=== PATIENT | female | born 1940 | race Caucasian/White ===

== ENCOUNTER 2016-09-06 13:33 | Inpatient (IN) | payer MEDICARE, BC ==
[~2016-09-06] VITALS: Ht 160 cm; Wt 79.8 kg
[~2016-09-06 13:33] MED LIST: ATOR40TA59 PO; CLON0.1T PO; CYCL10TA2 PO; DILT300C43 PO; FURO20TA3 PO; FURO40TA4 PO; GABA-586 PO; HYDR-2672 PO; LISI2.5T PO; LISI40TA PO; METF500T4 PO; METO100T11 PO; METO50TA10 PO; OMEP20TA PO; PHEN32.42 PO
[2016-09-06 14:38] VITALS: BP 108/56
[2016-09-06] MEDS ORDERED: 0.9 % SODIUM CHLORIDE 10 ML DISP.SYRIN. IV PRN (14:45)
--- NOTE | 2016-09-06 15:16 | RAD ---
Portable chest, 09/06/2016: History: Shortness of breath Comparison is made to a study from 09/12/2015. The heart is mildly enlarged. There is calcific plaquing of the aorta. The pulmonary vascularity is normal. No pulmonary infiltrates are seen. There is no evidence of pleural fluid. IMPRESSION: 1. Mild cardiomegaly and aortic atherosclerosis. 2. No acute cardiopulmonary abnormality is detected.
[2016-09-06 15:17] LABS: BASO % 1 % (0-3); EOS % 5 % (0-3); HEMOGLOBIN 13.1 g/dL (12.0-15.5); LYMPH # 0.4 x10^3/uL (1.0-4.8); LYMPH % 15 % (24-48); MEAN CORPUSCULAR HEMOGLOBIN 32 pg (25-35); MEAN CORPUSCULAR HGB CONC 33 g/dL (31-37); MEAN CORPUSCULAR VOLUME 99 fL (79-100); MONO % 7 % (0-9); NEUT % 73 % (31-73); PLATELET COUNT 62 x10^3/uL (140-400); RED BLOOD COUNT 4.06 x10^6/uL (3.50-5.40); RED CELL DISTRIBUTION WIDTH 13.7 % (11.5-14.5); WHITE BLOOD COUNT 2.7 x10^3/uL (4.0-11.0)
[2016-09-06] MEDS ORDERED: DILTIAZEM 125 MG in IV DEXTROSE 5% 100 ML IV PRN (15:30)
[2016-09-06] MEDS ORDERED: DILTIAZEM IV PUSH 25 MG/5 ML VIAL. IVP ONE (15:30)
[2016-09-06 15:34] LABS: BILIRUBIN,URINE NEGATIVE (NEG); GLUCOSE,URINE NEGATIVE (NEG); NITRITE,URINE NEGATIVE (NEG); PROTEIN,URINE NEGATIVE (NEG-TRACE); UROBILINOGEN,URINE 0.2 mg/dL (0.2 mg/dL)
--- NOTE | 2016-09-06 15:34 | EKG ---
[facility] [address] [place] [address] Test Date: 2016-09-06 Test Time: 15:30:08 Pat Name: KRYSTLE HOWELL Department: Room: 207 Gender: F Ring Maker: : [id number] Requested By: SILVERIO ASKEW Order Number: [id number] Reading MD: Measurements Intervals [place] Rate: 103 P: DC: QRS: 12 QRSD: 92 T: 14 QT: 340 QTc: 447 Interpretive Statements IRREGULAR RHYTHM, NO P-WAVE FOUND QRS(T) CONTOUR ABNORMALITY CONSIDER ANTEROSEPTAL MYOCARDIAL DAMAGE CONSISTENT WITH INFERIOR INFARCT PROBABLY OLD ABNORMAL ECG RI6.01 No previous ECG available for comparison
[2016-09-06 15:35] LABS: INR 1.2 (0.8-1.1); PROTHROMBIN TIME PATIENT 14.4 SEC (11.7-14.0)
[2016-09-06 15:45] LABS: BACTERIA,URINE 0 /HPF (0-FEW); RBC,URINE OCC /HPF (0-2)
[2016-09-06 15:50] LABS: CALCIUM 9.4 mg/dL (8.5-10.1); CREATININE 1.4 mg/dL (0.6-1.0); GFR 36.7; MAGNESIUM 2.1 mg/dL (1.8-2.4); POTASSIUM 4.7 mmol/L (3.5-5.1)
--- NOTE | 2016-09-06 16:13 | PDOC2 ---
CARDIAC CONSULT DATE OF CONSULT Date of Consult DATE: 09/06/16 TIME: 15:48 REASON FOR CONSULT Reason for Consult: atrial fibrillation with RVR REFERRING PHYSICIAN Referring Physician: Dr. Mary Jones SOURCE Source: Caregiver (), Chart review, Patient (who is severely hearing impaired) HISTORY OF PRESENT ILLNESS HISTORY OF PRESENT ILLNESS 76 year old female admitted from her PCP's office after regularly scheduled appointment. Reportedly with abnormal EKG, however, EKG not available for review. Telemetry demonstrates atrial fibrillation with RVR and heart rate of 110 - 135. Patient reports constant substernal pain over possibly the last week associated with epigastric pain as well. Symptoms somewhat alleviated with antacids. indicates patient had a "rhythm problem" when hospitalized at [facility] about a year ago. Has been off her diltiazem for at least 5 days. Denies associated dizziness, diaphoresis, syncope. Patient primarily concerned about a "spider bite" on her right lateral calf that has been present for at least 6 weeks. Reason for Visit: atrial fib PAST MEDICAL HISTORY Cardiovascular: HTN, Hyperlipidemia Pulmonary: No pertinent hx, Other (DVT with IVC filter placement) CENTRAL NERVOUS SYSTEM: Seizure (last episode - 1992) GI: GERD Heme/Onc: Cancer Hepatobiliary: No pertinent hx Psych: No pertinent hx Musculoskeletal: low back pain, Osteoarthritis Rheumatologic: No pertinent hx Infectious disease: No pertinent hx ENT: No pertinent hx Renal/: No pertinent hx Endocrine: Diabetes Dermatology: No pertinent hx PAST SURGICAL HISTORY Past Surgical History: Appendectomy, Hysterectomy, Other (right ankle - screws ; IVC filter) FAMILY HISTORY Family History negative for CAD and cardiac dysrhythmias SOCIAL HISTORY Smoke: Quit (as a young adult) ALCOHOL: none Lives: with Family ALLERGIES ALLERGIES: Coded Allergies: No Known Drug Allergies (Unverified , 04/27/15) ROS Review of System 14 point review with pertinent positives in HPI PHYSICAL EXAM General: Alert, Oriented X3, Cooperative, No acute distress HEENT: Atraumatic, PERRLA Lungs: Clear to auscultation, Normal air movement Heart: Normal S1, Normal S2, No murmurs, Other (IRRR; tele: atrial fib with RVR ; no carotid bruits) Abdomen: Normal bowel sounds, No tenderness Extremities: No edema, Normal pulses Skin: No rashes, Other (small nickel size wound on RLE - lateral calf with dried eschar present) Neuro: Normal speech Psych/Mental Status: Mental status NL, Mood NL MUSCULOSKELETAL: Osteoarthritic changes both hands VITALS VITALS Vital Signs Date Time Temp Pulse Resp B/P Pulse Ox O2 Delivery O2 Flow Rate FiO2 09/06/16 14:38 97.6 118 18 108/56 95 Room Air 97.6 LABS Lab: Laboratory Tests Test 09/06/16 14:15 09/06/16 15:05 Urine Collection Type Unknown Urine Color Yellow Urine Clarity Clear Urine pH 5.0 Urine Specific [place] 1.015 Urine Protein Negativemg/dL (NEG-TRACE) Urine Glucose (UA) Negativemg/dL (NEG) Urine Ketones (Stick) Negativemg/dL (NEG) Urine Blood Negative (NEG) Urine Nitrite Negative (NEG) Urine Bilirubin Negative (NEG) Urine Urobilinogen Dipstick 0.2mg/dL (0.2 mg/dL) Urine Leukocyte Esterase Negative (NEG) Urine RBC Occ/HPF (0-2) Urine WBC 1-4/HPF (0-4) Urine Bacteria 0/HPF (0-FEW) Urine Hyaline Casts Many/HPF Urine Mucus Slight/LPF White Blood Count 2.7x10^3/uL (4.0-11.0) Red Blood Count 4.06x10^6/uL (3.50-5.40) Hemoglobin 13.1g/dL (12.0-15.5) Hematocrit 40.0% (36.0-47.0) Mean Corpuscular Volume 99fL (79-100) Mean Corpuscular Hemoglobin 32pg (25-35) Mean Corpuscular Hemoglobin Concent 33g/dL (31-37) Red Cell Distribution Width 13.7% (11.5-14.5) Platelet Count 62x10^3/uL (140-400) Neutrophils (%) (Auto) 73% (31-73) Lymphocytes (%) (Auto) 15% (24-48) Monocytes (%) (Auto) 7% (0-9) Eosinophils (%) (Auto) 5% (0-3) Basophils (%) (Auto) 1% (0-3) Neutrophils # (Auto) 2.0x10^3uL (1.8-7.7) Lymphocytes # (Auto) 0.4x10^3/uL (1.0-4.8) Monocytes # (Auto) 0.2x10^3/uL (0.0-1.1) Eosinophils # (Auto) 0.1x10^3/uL (0.0-0.7) Basophils # (Auto) 0.0x10^3/uL (0.0-0.2) Prothrombin Time 14.4SEC (11.7-14.0) Prothromb Time International Ratio 1.2 (0.8-1.1) IMAGES IMAGES CXR: Comparison is made to a study from 09/12/2015. The heart is mildly enlarged. There is calcific plaquing of the aorta. The pulmonary vascularity is normal. No pulmonary infiltrates are seen. There is no evidence of pleural fluid. IMPRESSION: 1. Mild cardiomegaly and aortic atherosclerosis. 2. No acute cardiopulmonary abnormality is detected. EKG EKG no acute changes: atrial fib ASSESSMENT/PLAN ASSESSMENT/PLAN 1. atrial fib, RVR suspect not new but recurrence with abrupt cessation of diltiazem 5 days ago requesting records from [facility] C[facility] Diltiazem bolus and then start gtt [id number] = 5 corresponding to 7.2% stroke risk per year - will start Lovenox with dosing per pharmacy based on Cr Cl (labs pending) for stroke prevention ? previously treated with OAC and ? rectal bleeding - will need to check office charts 2. substernal CP troponin levels pending echo to evaluate LV function and assess for WMA ? related to atrial fib vs GERD consider outpatient MPI if not done recently 3. HTN control with meds 4. HLD check FLP continue statin therapy 5. DM, II per primary service 6. GERD resume home PPI 7. RLE wound healing per primary service Problems: JEROMY MOHAN [employer] SEALER Sep 06, 2016 16:13
[2016-09-06] MEDS ORDERED: DULO60CA6 PO (16:39)
[2016-09-06] MEDS ORDERED: HYDR-2666 PO (16:39)
[2016-09-06] MEDS ORDERED: OMEP40CA5 PO (16:39)
[2016-09-06] MEDS ORDERED: ASPI81TA2 PO (16:39)
[2016-09-06] MEDS ORDERED: FURO40TA4 PO (16:39)
[2016-09-06] MEDS ORDERED: ONDA4TAB7 PO (16:39)
[2016-09-06] MEDS: ENOXAPARIN ** NOTE DOSE ** SYRINGE SQ SCH (17:04)
--- NOTE | 2016-09-06 17:28 | CARD ---
APPROVED REPORT EXAM: Two-dimensional and M-mode echocardiogram with Doppler and color Doppler. Other Information Quality : Good INDICATION Atrial Fibrillation 2D DIMENSIONS RVDd2.7 (2.9-3.5cm)Left Atrium(2D)4.6 (1.6-4.0cm) IVSd1.2 (0.7-1.1cm)Aortic Root(2D)2.8 (2.0-3.7cm) LVDd4.6 (3.9-5.9cm)LVOT Diameter2.0 (1.8-2.4cm) PWd1.3 (0.7-1.1cm)LVDs3.0 (2.5-4.0cm) FS (%) 30.0 %SV60.0 ml LVEF(%)60.0 (>50%) Aortic Valve AoV Peak Odin.115.0cm/sAoV VTI16.1cm AO Peak GR.5.3mmHgLVOT VTI 13.37cm AO Mean GR.3mmHgAVA (VTI)2.60cm2 Tricuspid Valve TR P. Aeaneeoi121oe/sRAP [id number] TR Peak Gr.[id number] LEFT VENTRICLE The left ventricle is normal size. There is mild concentric left ventricular hypertrophy. The left ve ntricular systolic function is normal and the ejection fraction is within normal range. The Ejection Fraction is 55-60%. There is normal LV segmental wall motion. Unable to determine diastolic function due to atrial fibrillation. RIGHT VENTRICLE The right ventricle is normal size. The right ventricular systolic function is normal. ATRIA The left atrium is mildto moderately dilated. The right atrium is mildto moderately dilated. There is a small secundum type atrial septal defect visualized with color-flow Doppler. AORTIC VALVE The aortic valve is calcified but opens well. Doppler and Color Flow revealed mild aortic regurgitati on. There is no significant aortic valvular stenosis. MITRAL VALVE The mitral valve is mildly thickened and calcified but opens well. There is no evidence of mitral gracia ve prolapse. There is no mitral valve stenosis. Doppler and Color-flow revealed mild mitral regurgita tion. TRICUSPID VALVE The tricuspid valve is normal in structure and function. Doppler and Color Flow revealed mild tricusp id regurgitation. The PA pressure was estimated at 41 mmHg. There is no tricuspid valve stenosis. PULMONIC VALVE The pulmonary valve is normal in structure and function. Doppler and Color Flow revealed trace to mil d pulmonic valvular regurgitation. There is no pulmonic valvular stenosis. GREAT VESSELS The aortic root is normal in size. The ascending aorta is not well seen. The IVC is normal in size an d collapses >50% with inspiration. PERICARDIAL EFFUSION There is no evidence of significant pericardial effusion. Critical Notification Critical Value: No <Conclusion> The left ventricle is normal size. The left ventricular systolic function is normal and the ejection fraction is within normal range. The Ejection Fraction is 55-60%. There is mild concentric left ventricular hypertrophy. There is no significant aortic valvular stenosis. Doppler and Color Flow revealed mild aortic regurgitation. Doppler and Color-flow revealed mild mitral regurgitation. Doppler and Color Flow revealed mild tricuspid regurgitation. The PA pressure was estimated at 41 mmHg.
[2016-09-06] MEDS ORDERED: ONDANSETRON ODT 4 MG TAB.RAPDIS PO PRN (17:45)
[2016-09-06] MEDS ORDERED: CYCLOBENZAPRINE 10 MG TABLET. PO PRN (17:45)
--- NOTE | 2016-09-06 17:56 | PDOC ---
OBJECTIVE Vital Signs Vital Signs Date Time Temp Pulse Resp B/P Pulse Ox O2 Delivery O2 Flow Rate FiO2 09/06/16 17:03 115 09/06/16 14:38 97.6 118 18 108/56 95 Room Air 97.6 ASSESSMENT/PLAN Assessment/Plan 102165 H&P dictated Problems: COMMENT Lab Laboratory Tests Test 09/06/16 14:15 09/06/16 15:05 Urine Collection Type Unknown Urine Color Yellow Urine Clarity Clear Urine pH 5.0 Urine Specific [place] 1.015 Urine Protein Negativemg/dL (NEG-TRACE) Urine Glucose (UA) Negativemg/dL (NEG) Urine Ketones (Stick) Negativemg/dL (NEG) Urine Blood Negative (NEG) Urine Nitrite Negative (NEG) Urine Bilirubin Negative (NEG) Urine Urobilinogen Dipstick 0.2mg/dL (0.2 mg/dL) Urine Leukocyte Esterase Negative (NEG) Urine RBC Occ/HPF (0-2) Urine WBC 1-4/HPF (0-4) Urine Bacteria 0/HPF (0-FEW) Urine Hyaline Casts Many/HPF Urine Mucus Slight/LPF White Blood Count 2.7x10^3/uL (4.0-11.0) Red Blood Count 4.06x10^6/uL (3.50-5.40) Hemoglobin 13.1g/dL (12.0-15.5) Hematocrit 40.0% (36.0-47.0) Mean Corpuscular Volume 99fL (79-100) Mean Corpuscular Hemoglobin 32pg (25-35) Mean Corpuscular Hemoglobin Concent 33g/dL (31-37) Red Cell Distribution Width 13.7% (11.5-14.5) Platelet Count 62x10^3/uL (140-400) Neutrophils (%) (Auto) 73% (31-73) Lymphocytes (%) (Auto) 15% (24-48) Monocytes (%) (Auto) 7% (0-9) Eosinophils (%) (Auto) 5% (0-3) Basophils (%) (Auto) 1% (0-3) Neutrophils # (Auto) 2.0x10^3uL (1.8-7.7) Lymphocytes # (Auto) 0.4x10^3/uL (1.0-4.8) Monocytes # (Auto) 0.2x10^3/uL (0.0-1.1) Eosinophils # (Auto) 0.1x10^3/uL (0.0-0.7) Basophils # (Auto) 0.0x10^3/uL (0.0-0.2) Prothrombin Time 14.4SEC (11.7-14.0) Prothromb Time International Ratio 1.2 (0.8-1.1) Sodium Level 140mmol/L (136-145) Potassium Level 4.7mmol/L (3.5-5.1) Chloride Level 101mmol/L (98-107) Carbon Dioxide Level 28mmol/L (21-32) Anion Gap 11 (6-14) Blood Urea Nitrogen 52mg/dL (7-20) Creatinine 1.4mg/dL (0.6-1.0) Estimated GFR (Cockcroft-Gault) 36.7 Glucose Level 89mg/dL (70-99) Calcium Level 9.4mg/dL (8.5-10.1) Magnesium Level 2.1mg/dL (1.8-2.4) Troponin I Quantitative < 0.017ng/mL (0.000-0.055) KI-Azd-K-Type Natriuretic Peptide 4227pg/mL (0-449) Thyroid Stimulating Hormone (TSH) 3.582uIU/mL (0.358-3.74) SILVERIO ASKEW MD Sep 06, 2016 17:56
[2016-09-06] MEDS: IV 1/2 NORMAL SALINE 1,000 ML IV SCH (18:36)
--- NOTE | 2016-09-06 19:04 | HP ---
[facility] [id number] LOCATION: She is currently in room 207. HISTORY OF PRESENT ILLNESS: The patient is a 76-year-old lady who came today to her usual appointment in the office. She has complained of not feeling good in general. She does have generalized pain and arthritis. She does feel fatigued and she was noted today to be hypotensive and had high heart rate when she was checked in. She denies chest pain and denies shortness of breath. She does have abdominal pain, however, and discomfort in her abdomen. She was recently treated for right lower extremity ulcer with 2 rounds of antibiotics, doxycycline and Bactrim and has not felt good since then. On her exam, she was found to be in AFib with RVR. The patient did admit that she has not taken her Cardizem for the last 5 days due to high copay on the medication. Apparently, she does have a deductible to meet and she chose not to pay for the medicine. PAST MEDICAL HISTORY: Significant for seizure disorder. She has not had a seizure for many years, but she has been on medication for that. She does have a history of peripheral neuropathy, numbness in the lower extremities, low back pain, hypertension and hyperlipidemia. She does have a history of anal cancer, was treated with radiation about 8 months ago and history of colitis, history of diverticulosis, gastroesophageal reflux disease, previous UTIs, osteoarthritis, previous history of right ankle fracture from a fall in 2008. She is diabetic, but has no previous known coronary artery disease. SOCIAL HISTORY: She quit smoking 30 years ago, but smoked for about 10 years before that. She does not use alcohol or drugs. She lives with her . FAMILY HISTORY: Positive for hypertension and diabetes. REVIEW OF SYSTEMS: CONSTITUTIONAL: Denies fever or chills, but she does not feel good in general. EYES: Vision, denies visual problems. UPPER RESPIRATORY: Denies sore throat or congestion. RESPIRATORY: Denies increasing shortness of breath. CARDIOLOGY: She does have palpitation, but denies chest pain. GASTROINTESTINAL: She does have abdominal discomfort and has been passing a lot of gas, bloating and constipated. When she does have a bowel movement, she said it has smelled very bad. She did not have vomiting or nausea. GENITOURINARY: She does have urinary incontinence, but denies dysuria. NEUROLOGY: She denies focal weakness, denies increasing headache and denies recent seizure. DERMATOLOGY: She has an ulcer on her right lower extremity with a scab and surrounding erythema. She has finished recently 2 rounds of antibiotics and states that her leg feels much better. She was told that this is probably a spider bite at . IMPRESSION: 1. Acute episode of atrial fibrillation with rapid ventricular response, could be exacerbated or a result of stopping her Cardizem for last 5 days. 2. Abdominal pain and epigastric pain, cannot rule out chest pain. We will obtain troponin and ask Cardiology to see. 3. Acute renal failure and low blood pressure. She has been started on slow IV fluid hydration. 4. Hypertension, hypertensive cardiovascular disease. 5. Hyperlipidemia. 6. Diabetes mellitus type 2, usually controlled. 7. Gastroesophageal reflux disease. We will continue her PPI. 8. Right lower extremity cellulitis and ulcer, is improving. 9. Chronic lower extremity edema. 10. Low white blood count and platelets, could be due to recent ____, but we will ask Hematology opinion. 11. History of seizure disorder. SILVERIO ASKEW MD DR: SANDIP/tatyana JOB#: [id number] / [id number]
[2016-09-06 19:15] VITALS: BP 101/51
[2016-09-06] MEDS: ATORVASTATIN CALCIUM 40 MG TABLET. PO SCH (20:26)
[2016-09-06] MEDS: PHENobarbital 32.4 MG TABLET. PO SCH (20:26)
[2016-09-06] MEDS: GABAPENTIN 300 MG CAPSULE. PO SCH (20:26)
[2016-09-06] MEDS: HYDROCODONE/APAP 5/325MG TABLET. PO PRN (20:55)
[2016-09-06 23:48] VITALS: BP 89/55
[2016-09-07 03:11] VITALS: BP 91/53
[2016-09-07 06:07] LABS: CHOLESTEROL/HDL RATIO 3.2
[2016-09-07 07:55] VITALS: BP 133/57
[2016-09-07] MEDS: ENOXAPARIN ** NOTE DOSE ** SYRINGE SQ SCH (08:36)
[2016-09-07] MEDS: DULOXETINE HCL 30 MG CAPSULE.DR. PO SCH (08:36)
[2016-09-07] MEDS: ASPIRIN 81 MG TAB.CHEW PO SCH (08:37)
[2016-09-07] MEDS: METFORMIN 500 MG TABLET. PO SCH (08:37)
[2016-09-07] MEDS: PANTOPRAZOLE 40 MG TABLET. PO SCH (08:37)
[2016-09-07] MEDS: PHENobarbital 32.4 MG TABLET. PO SCH ×3 (08:37→21:02)
[2016-09-07] MEDS: HYDROCODONE/APAP 5/325MG TABLET. PO PRN ×2 (08:43→21:59)
--- NOTE | 2016-09-07 10:55 | PDOC ---
CARDIO Progress Notes Date and Time Date of Service 09/07/2016 Time of Evaluation 1050 Subjective Subjective: No Chest Pain, No shortness of breath, No Palpitations, No Dizziness Vitals Vitals Vital Signs Date Time Temp Pulse Resp B/P Pulse Ox O2 Delivery O2 Flow Rate FiO2 09/07/16 08:43 93 Room Air 09/07/16 07:55 97.5 96 16 133/57 97.5 Weight Weight [ ] Input and Output Intake and Output Intake and Output 09/07/16 07:00 Intake Total 818.5 ml Output Total 1050 ml Balance -231.5 ml Intake Oral 240 ml IV Total 578.5 ml Output Urine Total 1050 ml Laboratory Labs Laboratory Tests Test 09/06/16 14:15 09/06/16 15:05 09/06/16 17:08 09/06/16 20:38 Urine Collection Type Unknown Urine Color Yellow Urine Clarity Clear Urine pH 5.0 Urine Specific [place] 1.015 Urine Protein Negativemg/dL (NEG-TRACE) Urine Glucose (UA) Negativemg/dL (NEG) Urine Ketones (Stick) Negativemg/dL (NEG) Urine Blood Negative (NEG) Urine Nitrite Negative (NEG) Urine Bilirubin Negative (NEG) Urine Urobilinogen Dipstick 0.2mg/dL (0.2 mg/dL) Urine Leukocyte Esterase Negative (NEG) Urine RBC Occ/HPF (0-2) Urine WBC 1-4/HPF (0-4) Urine Bacteria 0/HPF (0-FEW) Urine Hyaline Casts Many/HPF Urine Mucus Slight/LPF White Blood Count 2.7x10^3/uL (4.0-11.0) Red Blood Count 4.06x10^6/uL (3.50-5.40) Hemoglobin 13.1g/dL (12.0-15.5) Hematocrit 40.0% (36.0-47.0) Mean Corpuscular Volume 99fL (79-100) Mean Corpuscular Hemoglobin 32pg (25-35) Mean Corpuscular Hemoglobin Concent 33g/dL (31-37) Red Cell Distribution Width 13.7% (11.5-14.5) Platelet Count 62x10^3/uL (140-400) Neutrophils (%) (Auto) 73% (31-73) Lymphocytes (%) (Auto) 15% (24-48) Monocytes (%) (Auto) 7% (0-9) Eosinophils (%) (Auto) 5% (0-3) Basophils (%) (Auto) 1% (0-3) Neutrophils # (Auto) 2.0x10^3uL (1.8-7.7) Lymphocytes # (Auto) 0.4x10^3/uL (1.0-4.8) Monocytes # (Auto) 0.2x10^3/uL (0.0-1.1) Eosinophils # (Auto) 0.1x10^3/uL (0.0-0.7) Basophils # (Auto) 0.0x10^3/uL (0.0-0.2) Prothrombin Time 14.4SEC (11.7-14.0) Prothromb Time International Ratio 1.2 (0.8-1.1) Sodium Level 140mmol/L (136-145) Potassium Level 4.7mmol/L (3.5-5.1) Chloride Level 101mmol/L (98-107) Carbon Dioxide Level 28mmol/L (21-32) Anion Gap 11 (6-14) Blood Urea Nitrogen 52mg/dL (7-20) Creatinine 1.4mg/dL (0.6-1.0) Estimated GFR (Cockcroft-Gault) 36.7 Glucose Level 89mg/dL (70-99) Calcium Level 9.4mg/dL (8.5-10.1) Magnesium Level 2.1mg/dL (1.8-2.4) Troponin I Quantitative < 0.017ng/mL (0.000-0.055) JH-Voq-G-Type Natriuretic Peptide 4227pg/mL (0-449) Thyroid Stimulating Hormone (TSH) 3.582uIU/mL (0.358-3.74) Glucose (Fingerstick) 88mg/dL (70-99) 102mg/dL (70-99) Test 09/07/16 03:00 09/07/16 08:28 Troponin I Quantitative < 0.017ng/mL (0.000-0.055) Triglycerides Level 133mg/dL (0-150) Cholesterol Level 158mg/dL (0-200) LDL Cholesterol, Calculated 82mg/dL (0-100) VLDL Cholesterol, Calculated 27mg/dL (0-40) HDL Cholesterol 49mg/dL (40-60) Cholesterol/HDL Ratio 3.2 Glucose (Fingerstick) 86mg/dL (70-99) Physical Exam Chest: Symmetric LUNGS: Clear to Auscultation Heart: S1S2, no murmurs, irregularly irregular, other (tele: atrial fib with rate in the 80s) Abdomen: Soft N/T Extremities: No Edema Neurology: alert, oriented, follow commands Assessment Assessment 1. atrial fib, RVR suspect not new but recurrence with abrupt cessation of diltiazem 5 days ago requested records from [facility] - no response rate controlled - stop IV diltiazem and convert to oral [id number] = 5 corresponding to 7.2% stroke risk per year - will start Lovenox with dosing per pharmacy based on Cr Cl (labs pending) for stroke prevention previously treated with Xarelto - agreeable to resuming OAC at least for immediate future due to potential need for DCCV - would need OAC for 4 - 6 weeks prior to performing this prefers different med and will start Eliquis 5 mg BID 2. substernal CP troponin levels not consistent with ACS echo with preserved LV function and no WMA; mild valvular heart disease ? related to atrial fib vs GERD - pain resolved with HR control consider outpatient MPI if not done recently 3. HTN control with meds 4. HLD LDLs = 82 continue statin therapy agreeable with discharge when planned by primary service f/u with cardiology in about 4 weeks - office will call to schedule JEROMY MOHAN APRN Sep 07, 2016 10:55
[2016-09-07] MEDS ORDERED: DILTIAZEM HCL 120 MG CAP.ER.24H PO SCH (11:00)
[2016-09-07 11:55] VITALS: BP 101/66
--- NOTE | 2016-09-07 12:43 | PDOC2 ---
CONSULT Date of Consult Date of Consult DATE: 09/07/16 TIME: 12:41 Reason for Consult Reason for Consult: ELIAS Referring Physician Referring Physician: Dr Jones Identification/Chief Complaint Chief Complaint Not Feeling good Problems: Source Source: Chart review, Patient History of Present Illness Reason for Visit: as dictated Past Medical History Cardiovascular: HTN, Hyperlipidemia Pulmonary: No pertinent hx, Other (DVT with IVC filter placement) CENTRAL NERVOUS SYSTEM: Seizure (last episode - 1992) GI: GERD Heme/Onc: Cancer Hepatobiliary: No pertinent hx Psych: No pertinent hx Musculoskeletal: low back pain, Osteoarthritis Rheumatologic: No pertinent hx Infectious disease: No pertinent hx ENT: No pertinent hx Renal/: No pertinent hx Endocrine: Diabetes Dermatology: No pertinent hx Past Surgical History Past Surgical History: Appendectomy, Hysterectomy, Other (right ankle - screws ; IVC filter) Family History Family History: Cancer Social History Quit (as a young adult) ALCOHOL: none Drugs: None Lives: with Family Current Medications Current Medications Current Medications Sodium Chloride 3 ml 3 ml PRN DAILY PRN IV AFTER MEDS AND BLOOD DRAWS; Start at 14:45 Diltiazem HCl/ Dextrose (Cardizem) 125 ml @ 0 mls/hr CONT PRN IV SEE I/O RECORD Last administered on 09/06/16 17:06; Start 09/06/16 at 15:30; Stop at 10:58; Status DC Diltiazem HCl (Cardizem) 5 mg 1X ONCE IVP Last administered on 09/06/16 17:03 ; Start 09/06/16 at 15:30; Stop 09/06/16 at 16:00; Status DC Enoxaparin Sodium (Lovenox Per Pharmacy Treatment Dosing) 1 each PRN DAILY PRN MC SEE COMMENTS; Start 09/06/16 at 15:30; Stop 09/07/16 at 10:58; Status DC Enoxaparin Sodium (Lovenox 80mg Syringe) 80 mg Q12HR SQ Last administered on 08:36; Start 09/06/16 at 16:00; Stop 09/07/16 at 10:58; Status DC Aspirin (Children'S Aspirin) 81 mg DAILYWBKFT PO Last administered on 09/07/16 08:37; Start 09/07/16 at 08:00 Atorvastatin Calcium (Lipitor) 40 mg QHS PO Last administered on 09/06/16 20:26 ; Start 09/06/16 at 21:00 Cyclobenzaprine HCl (Flexeril) 10 mg TID PRN PO BREAKTHROUGH PAIN; Start at 17:45 Gabapentin (Neurontin) 300 mg QHS PO Last administered on 09/06/16 20:26; Start 09/06/16 at 21:00 Acetaminophen/ Hydrocodone Bitart (Lortab 5/325) 1 tab Q4HRS PRN PO PAIN Last administered on 09/07/16 08:43; Start 09/06/16 at 17:45 Metformin HCl (Glucophage) 500 mg DAILYWBKFT PO Last administered on 09/07/16 08:37; Start 09/07/16 at 08:00 Phenobarbital (Luminal) 32.4 mg TID PO Last administered on 09/07/16 08:37; Start 09/06/16 at 21:00 Duloxetine HCl (Cymbalta) 60 mg DAILY PO Last administered on 09/07/16 08:36; Start 09/07/16 at 09:00 Pantoprazole Sodium (Protonix) 40 mg DAILYAC PO Last administered on 09/07/16 08:37; Start 09/07/16 at 07:30 Ondansetron HCl 4 mg 4 mg PRN Q8HRS PRN PO NAUSEA/VOMITING; Start 09/06/16 at 17 :45 Sodium Chloride (Iv Sodium Chloride 0.45%) 1,000 ml @ 50 mls/hr Q20H IV Last administered on 09/06/16 18:36; Start 09/06/16 at 17:45 Diltiazem HCl (Cardizem 24hr Cd) 180 mg DAILY PO ; Start 09/07/16 at 11:00 Apixaban (Eliquis) 5 mg BID PO ; Start 09/07/16 at 21:00 Active Scripts Active Reported Cymbalta (Duloxetine Hcl) 60 Mg Capsule. 60 Mg PO DAILY Zofran (Ondansetron Hcl) 4 Mg Tablet 4 Mg PO Q8HRS PRN Aspirin 81 Mg Tab.chew 81 Mg PO DAILY Hydrocodone-Apap 5-325 (Hydrocodone Bit/Acetaminophen) 1 Each Tablet 1 Tab PO Q4-6HRS PRN Omeprazole 40 Mg Capsule.dr 40 Mg PO DAILY Furosemide 40 Mg Tablet 120 Mg PO DAILY Metoprolol Succinate ( Xl ) (Metoprolol Succinate) 100 Mg Tab.er.24h 100 Tab PO DAILY Atorvastatin Calcium 40 Mg Tablet 40 Tab PO QHS Cyclobenzaprine Hcl 10 Mg Tablet 10 Tab PO TID PRN Taztia Xt (Diltiazem Hcl) 300 Mg Capsule.er 300 Mg PO DAILY Clonidine Hcl 0.1 Mg Tablet 0.1 Mg PO PRN QHS Gabapentin 300 Mg Capsule 300 Cap PO QHS Phenobarbital 32.4 Mg Tablet 32.4 Mg PO TID Lisinopril 40 Mg Tablet 1 Tab PO DAILY Metformin Hcl 500 Mg Tablet 500 Tab PO DAILY Allergies Allergies: Coded Allergies: No Known Drug Allergies (Unverified , 04/27/15) ROS Review of System GEN: no Fevers no Chills EYES: no new Visual Complaints ENT: no EN Drainage ch Hearing deficiets CVS: no Orthopnea + CP OA - now better RESP: no SOB no STILES GI: + Nausea no Vomiting : no Dysuria no Urgency HEME: no easy bruising no Palp Ly Nodes NEURO no Focal Weakness no Sz PSYCH: no Suicidal Ideation no Depression SKIN: no Rashes ENDO: no Polyuria or Polydipsia no Hot/Cold Intolerance MU SK: ch Arthraigia no Myalgia Physical Exam Physical Exam General Appearance: Awake Alert Oriented x 3 In no Distress Eyes: VIsion Unchanged Conjunctiva Normal EN: No EN Drainage Mucous Memb. moist Neck: no JVD no JVP Supple no Thyromegaly CVS: S1 S2 no Murmur No Gallop No Rub tr Edema Resp: no Rales no Rhonchi no Acc. Muscle use GI: BAS +ve NO Bruit Non Tender Non Distended : no CVA tenderness; no Suprapubic Tenderness SKIN: no Rashes Breast Exam deferred (? Bug bite on Rt Shin area) Mu.Sk: Adequate ROM no Muscle Atrophy Heme: Unable to palpate Obvious LAD n o palp Splenomegaly NEURO: Good Strength and Tone Cranial Nerves II - XII grossly intact Psych: not Depressed no Active hallucination Vital Signs Vital Signs Date Time Temp Pulse Resp B/P Pulse Ox O2 Delivery O2 Flow Rate FiO2 09/07/16 09:43 93 Room Air 09/07/16 07:55 97.5 96 16 133/57 97.5 Assessment & Plan ARF/ SUspect VMn from [facility] (asso with RVR), dehydration from lasix, hypotension and ? Bactrim effect : Current FLuid and E-lyte status does not necessitate emergent need for Dialysis. Will re-evaluate for Dialysis in am Vol Depeltion - IVF Low Plts - defer to Dr Jones to F/up - ? due to Bactrim HypoTN: Current BP meds reviewed. IVF for now. ? hold some of them for now Discussed Plan of Care and prognosis etc. at length with family. Labs Labs Laboratory Tests Test 09/06/16 14:15 09/06/16 15:05 09/06/16 17:08 09/06/16 20:38 Urine Collection Type Unknown Urine Color Yellow Urine Clarity Clear Urine pH 5.0 Urine Specific [place] 1.015 Urine Protein Negativemg/dL (NEG-TRACE) Urine Glucose (UA) Negativemg/dL (NEG) Urine Ketones (Stick) Negativemg/dL (NEG) Urine Blood Negative (NEG) Urine Nitrite Negative (NEG) Urine Bilirubin Negative (NEG) Urine Urobilinogen Dipstick 0.2mg/dL (0.2 mg/dL) Urine Leukocyte Esterase Negative (NEG) Urine RBC Occ/HPF (0-2) Urine WBC 1-4/HPF (0-4) Urine Bacteria 0/HPF (0-FEW) Urine Hyaline Casts Many/HPF Urine Mucus Slight/LPF White Blood Count 2.7x10^3/uL (4.0-11.0) Red Blood Count 4.06x10^6/uL (3.50-5.40) Hemoglobin 13.1g/dL (12.0-15.5) Hematocrit 40.0% (36.0-47.0) Mean Corpuscular Volume 99fL (79-100) Mean Corpuscular Hemoglobin 32pg (25-35) Mean Corpuscular Hemoglobin Concent 33g/dL (31-37) Red Cell Distribution Width 13.7% (11.5-14.5) Platelet Count 62x10^3/uL (140-400) Neutrophils (%) (Auto) 73% (31-73) Lymphocytes (%) (Auto) 15% (24-48) Monocytes (%) (Auto) 7% (0-9) Eosinophils (%) (Auto) 5% (0-3) Basophils (%) (Auto) 1% (0-3) Neutrophils # (Auto) 2.0x10^3uL (1.8-7.7) Lymphocytes # (Auto) 0.4x10^3/uL (1.0-4.8) Monocytes # (Auto) 0.2x10^3/uL (0.0-1.1) Eosinophils # (Auto) 0.1x10^3/uL (0.0-0.7) Basophils # (Auto) 0.0x10^3/uL (0.0-0.2) Prothrombin Time 14.4SEC (11.7-14.0) Prothromb Time International Ratio 1.2 (0.8-1.1) Sodium Level 140mmol/L (136-145) Potassium Level 4.7mmol/L (3.5-5.1) Chloride Level 101mmol/L (98-107) Carbon Dioxide Level 28mmol/L (21-32) Anion Gap 11 (6-14) Blood Urea Nitrogen 52mg/dL (7-20) Creatinine 1.4mg/dL (0.6-1.0) Estimated GFR (Cockcroft-Gault) 36.7 Glucose Level 89mg/dL (70-99) Calcium Level 9.4mg/dL (8.5-10.1) Magnesium Level 2.1mg/dL (1.8-2.4) Troponin I Quantitative < 0.017ng/mL (0.000-0.055) AW-Yzu-M-Type Natriuretic Peptide 4227pg/mL (0-449) Thyroid Stimulating Hormone (TSH) 3.582uIU/mL (0.358-3.74) Glucose (Fingerstick) 88mg/dL (70-99) 102mg/dL (70-99) Test 09/06/16 21:00 09/07/16 03:00 09/07/16 08:28 09/07/16 12:23 Troponin I Quantitative < 0.017ng/mL (0.000-0.055) < 0.017ng/mL (0.000-0.055) Triglycerides Level 133mg/dL (0-150) Cholesterol Level 158mg/dL (0-200) LDL Cholesterol, Calculated 82mg/dL (0-100) VLDL Cholesterol, Calculated 27mg/dL (0-40) HDL Cholesterol 49mg/dL (40-60) Cholesterol/HDL Ratio 3.2 Glucose (Fingerstick) 86mg/dL (70-99) 99mg/dL (70-99) Laboratory Tests Test 09/06/16 14:15 09/06/16 15:05 09/06/16 17:08 09/06/16 20:38 Urine Collection Type Unknown Urine Color Yellow Urine Clarity Clear Urine pH 5.0 Urine Specific [place] 1.015 Urine Protein Negativemg/dL (NEG-TRACE) Urine Glucose (UA) Negativemg/dL (NEG) Urine Ketones (Stick) Negativemg/dL (NEG) Urine Blood Negative (NEG) Urine Nitrite Negative (NEG) Urine Bilirubin Negative (NEG) Urine Urobilinogen Dipstick 0.2mg/dL (0.2 mg/dL) Urine Leukocyte Esterase Negative (NEG) Urine RBC Occ/HPF (0-2) Urine WBC 1-4/HPF (0-4) Urine Bacteria 0/HPF (0-FEW) Urine Hyaline Casts Many/HPF Urine Mucus Slight/LPF White Blood Count 2.7x10^3/uL (4.0-11.0) Red Blood Count 4.06x10^6/uL (3.50-5.40) Hemoglobin 13.1g/dL (12.0-15.5) Hematocrit 40.0% (36.0-47.0) Mean Corpuscular Volume 99fL (79-100) Mean Corpuscular Hemoglobin 32pg (25-35) Mean Corpuscular Hemoglobin Concent 33g/dL (31-37) Red Cell Distribution Width 13.7% (11.5-14.5) Platelet Count 62x10^3/uL (140-400) Neutrophils (%) (Auto) 73% (31-73) Lymphocytes (%) (Auto) 15% (24-48) Monocytes (%) (Auto) 7% (0-9) Eosinophils (%) (Auto) 5% (0-3) Basophils (%) (Auto) 1% (0-3) Neutrophils # (Auto) 2.0x10^3uL (1.8-7.7) Lymphocytes # (Auto) 0.4x10^3/uL (1.0-4.8) Monocytes # (Auto) 0.2x10^3/uL (0.0-1.1) Eosinophils # (Auto) 0.1x10^3/uL (0.0-0.7) Basophils # (Auto) 0.0x10^3/uL (0.0-0.2) Prothrombin Time 14.4SEC (11.7-14.0) Prothromb Time International Ratio 1.2 (0.8-1.1) Sodium Level 140mmol/L (136-145) Potassium Level 4.7mmol/L (3.5-5.1) Chloride Level 101mmol/L (98-107) Carbon Dioxide Level 28mmol/L (21-32) Anion Gap 11 (6-14) Blood Urea Nitrogen 52mg/dL (7-20) Creatinine 1.4mg/dL (0.6-1.0) Estimated GFR (Cockcroft-Gault) 36.7 Glucose Level 89mg/dL (70-99) Calcium Level 9.4mg/dL (8.5-10.1) Magnesium Level 2.1mg/dL (1.8-2.4) Troponin I Quantitative < 0.017ng/mL (0.000-0.055) KA-Ued-K-Type Natriuretic Peptide 4227pg/mL (0-449) Thyroid Stimulating Hormone (TSH) 3.582uIU/mL (0.358-3.74) Glucose (Fingerstick) 88mg/dL (70-99) 102mg/dL (70-99) Test 09/06/16 21:00 09/07/16 03:00 09/07/16 08:28 09/07/16 12:23 Troponin I Quantitative < 0.017ng/mL (0.000-0.055) < 0.017ng/mL (0.000-0.055) Triglycerides Level 133mg/dL (0-150) Cholesterol Level 158mg/dL (0-200) LDL Cholesterol, Calculated 82mg/dL (0-100) VLDL Cholesterol, Calculated 27mg/dL (0-40) HDL Cholesterol 49mg/dL (40-60) Cholesterol/HDL Ratio 3.2 Glucose (Fingerstick) 86mg/dL (70-99) 99mg/dL (70-99) Images Images renal US done but report is pending NNAMDI RODRIGUEZ MD Sep 07, 2016 12:43
[2016-09-07] MEDS: IV 1/2 NORMAL SALINE 1,000 ML IV SCH ×2 (13:09→21:02)
[2016-09-07] MEDS: DILTIAZEM HCL 180 MG CAP.ER.24H PO SCH (13:40)
--- NOTE | 2016-09-07 14:30 | RAD ---
Renal ultrasound 09/06/2016 Clinical history: Elevated creatinine. Urinary frequency. Technique: A real-time ultrasound examination of both kidneys and the urinary bladder was performed. Multiple images were obtained. Findings: Both kidneys are within normal limits in size. The right kidney measures 11.4 cm in length. The left kidney measures 11.1 cm in length. A 1.1 cm simple cyst is seen involving the lower pole of the left kidney. There appears to be an extrarenal pelvis involving the right kidney. No hydronephrosis is seen. The urinary bladder is distended with urine. Bilateral ureteral jets are seen which implies patency of both collecting system. The post void residual of the urinary bladder is 47.8 mm. Impression: No hydronephrosis is seen.
[2016-09-07] MEDS: ANTI-COAG MONITOR BY PHARMACY. MC PRN ×2 (14:50→14:52)
[2016-09-07 15:00] VITALS: BP 103/65
[2016-09-07 19:00] VITALS: BP 124/70
--- NOTE | 2016-09-07 19:15 | PDOC ---
GENERAL General: vss and afebrile. awake and alert. still tachy in 120's during my exam and in a- fib. stopped diltiazem 4 days or so prior to admission due to cost skyrocketing. Hb 13.2. WBC 2.7K and platelet 62K. troponin negative. BNP 4227. TSH is normal. Echo normal. cardiology help appreciated. continue same and strive for rate control. Problems: VITAL SIGNS Vital Signs: Vital Signs Date Time Temp Pulse Resp B/P Pulse Ox O2 Delivery O2 Flow Rate FiO2 09/07/16 15:00 120 18 103/65 94 Room Air 09/07/16 11:55 98.0 98.0 I & O I & O Intake and Output 09/07/16 07:00 Intake Total 818.5 ml Output Total 1050 ml Balance -231.5 ml Intake Oral 240 ml IV Total 578.5 ml Output Urine Total 1050 ml ALLERGIES Allergies: Allergies Coded Allergies Type Severity Reaction Last Updated Verified No Known Drug Allergies 04/27/15 No MEDS Medications: Current Medications Medications (Trade) Dose Ordered Sig/Alfredo Start Time Stop Time Status Last Admin Dose Admin Acetaminophen/ Hydrocodone Bitart (Lortab 5/325) 1 tab Q4HRS PRN 09/06/16 17:45 09/07/16 08:43 1 TAB Apixaban (Eliquis) 5 mg BID 09/07/16 21:00 Aspirin (Children'S Aspirin) 81 mg DAILYWBKFT 09/07/16 08:00 09/07/16 08:37 81 MG Atorvastatin Calcium (Lipitor) 40 mg QHS 09/06/16 21:00 09/06/16 20:26 40 MG Cyclobenzaprine HCl (Flexeril) 10 mg TID PRN 09/06/16 17:45 Diltiazem HCl (Cardizem 24hr Cd) 180 mg DAILY 09/07/16 13:00 09/07/16 13:40 180 MG Diltiazem HCl (Cardizem) 5 mg 1X ONCE 09/06/16 15:30 09/06/16 16:00 DC 09/06/16 17:03 5 MG Diltiazem HCl/ Dextrose (Cardizem) 125 ml @ 0 mls/hr CONT PRN 09/06/16 15:30 2/4/17 10:58 DC 09/06/16 17:06 10 MLS/HR Duloxetine HCl (Cymbalta) 60 mg DAILY 09/07/16 09:00 09/07/16 08:36 60 MG Enoxaparin Sodium (Lovenox 80mg Syringe) 80 mg Q12HR 09/06/16 16:00 09/07/16 10:58 DC 09/07/16 08:36 80 MG Enoxaparin Sodium (Lovenox Per Pharmacy Treatment Dosing) 1 each PRN DAILY PRN 09/06/16 15:30 09/07/16 10:58 DC Gabapentin (Neurontin) 300 mg QHS 09/06/16 21:00 09/06/16 20:26 300 MG Info (Anti-Coagulation Monitoring By Pharmacy) 1 each PRN DAILY PRN 09/07/16 14:45 09/07/16 14:52 1 EACH Metformin HCl (Glucophage) 500 mg DAILYWBKFT 09/07/16 08:00 09/07/16 08:37 500 MG Ondansetron HCl 4 mg 4 mg PRN Q8HRS PRN 09/06/16 17:45 Pantoprazole Sodium (Protonix) 40 mg DAILYAC 09/07/16 07:30 09/07/16 08:37 40 MG Phenobarbital (Luminal) 32.4 mg TID 09/06/16 21:00 09/07/16 13:40 32.4 MG Sodium Chloride (Iv Sodium Chloride 0.45%) 1,000 ml @ 125 mls/hr Q8H 09/06/16 17:45 09/06/16 18:36 50 MLS/HR Sodium Chloride 3 ml 3 ml PRN DAILY PRN 09/06/16 14:45 LAB Lab: Laboratory Tests Test 09/06/16 20:38 09/06/16 21:00 09/07/16 03:00 09/07/16 08:28 Glucose (Fingerstick) 102mg/dL (70-99) 86mg/dL (70-99) Troponin I Quantitative < 0.017ng/mL (0.000-0.055) < 0.017ng/mL (0.000-0.055) Triglycerides Level 133mg/dL (0-150) Cholesterol Level 158mg/dL (0-200) LDL Cholesterol, Calculated 82mg/dL (0-100) VLDL Cholesterol, Calculated 27mg/dL (0-40) HDL Cholesterol 49mg/dL (40-60) Cholesterol/HDL Ratio 3.2 Test 09/07/16 12:23 09/07/16 17:10 Glucose (Fingerstick) 99mg/dL (70-99) 114mg/dL (70-99) SUSAN JEFFREY MD Sep 07, 2016 19:15
[2016-09-07] MEDS: ATORVASTATIN CALCIUM 40 MG TABLET. PO SCH (21:02)
[2016-09-07] MEDS: GABAPENTIN 300 MG CAPSULE. PO SCH (21:02)
[2016-09-07] MEDS: APIXABAN 5 MG TABLET. PO SCH (21:02)
[2016-09-07 23:35] VITALS: BP 123/73
--- NOTE | 2016-09-08 02:19 | CONS ---
DATE OF CONSULTATION: 09/07/2016 PRIMARY PHYSICIAN: Mary Jones MD REASON FOR CONSULTATION: Acute renal failure. HISTORY OF PRESENT ILLNESS: The patient is a 76-year-old female whose most recent creatinine available to us in the system is 1.1. She apparently has not been feeling good of late, she has had some arthralgias. She was noted to be on Bactrim for a right lower extremity ulcer/bug bite by her reports. She was treated with Bactrim for the same. She was nauseated and not feeling well, and had not been taking her Cardizem in the last few days,____ documented by Dr. Jones. In this setting, she developed chest pain and was noted to be in AFib, RVR when evaluated in Dr. Jones's office. She was admitted to the hospital for further evaluation, has been checked out by Cardiology. Her creatinine was noted to be 1.4 and a BUN of 52. She is noted to have on ____ of Lasix every day. In this setting, we were asked to see her for renal insufficiency. PAST MEDICAL HISTORY: Significant for 1. Seizure disorder and peripheral neuropathy. 2. History of CHF, EF not known. 3. Hyperlipidemia. 4. Atrial fibrillation. 5. Hypertension. 6. DVT with IVC filter. 7. Hemorrhoids. 8. History of colitis and diverticulosis. 9. History of anal cancer. 10. GERD. 11. Hysterectomy. 12. Chronic arthritis. 13. Diabetes, currently on oral meds only. 14. Previous UTIs. SOCIAL HISTORY: Quit smoking 30 years ago, smoked for 10 years prior to that. No alcohol or drugs. , lives with her . FAMILY HISTORY: Positive for hypertension and diabetes. No kidney problems in the family as best that she could recollect. For rest of details, see electronic records. NNAMDI RODRIGUEZ MD DR: MEERA/tatyana JOB#: [id number] / [id number]
[2016-09-08 02:45] VITALS: BP 115/69
[2016-09-08] MEDS: IV 1/2 NORMAL SALINE 1,000 ML IV SCH (05:09)
[2016-09-08 06:49] LABS: CALCIUM 8.6 mg/dL (8.5-10.1); GFR 54.1; POTASSIUM 4.3 mmol/L (3.5-5.1)
[2016-09-08 07:00] VITALS: BP 132/86
[2016-09-08] MEDS: PANTOPRAZOLE 40 MG TABLET. PO SCH (07:47)
[2016-09-08] MEDS: HYDROCODONE/APAP 5/325MG TABLET. PO PRN (07:48)
[2016-09-08] MEDS: PHENobarbital 32.4 MG TABLET. PO SCH (08:36)
[2016-09-08] MEDS: DULOXETINE HCL 30 MG CAPSULE.DR. PO SCH (08:36)
[2016-09-08] MEDS: DILTIAZEM HCL 180 MG CAP.ER.24H PO SCH (08:36)
[2016-09-08] MEDS: APIXABAN 5 MG TABLET. PO SCH (08:36)
[2016-09-08] MEDS: ASPIRIN 81 MG TAB.CHEW PO SCH (08:36)
[2016-09-08] MEDS: METFORMIN 500 MG TABLET. PO SCH (08:36)
[2016-09-08 11:00] VITALS: BP 117/63
--- NOTE | 2016-09-08 12:36 | PDOC ---
GENERAL General: vss and afebrile. awake and alert and in attendance. feeling much better. heart rate at about 100 on po cardizem and could dc on same after cardiology sees unless they have other thoughts on meds. Problems: VITAL SIGNS Vital Signs: Vital Signs Date Time Temp Pulse Resp B/P Pulse Ox O2 Delivery O2 Flow Rate FiO2 09/08/16 11:00 98.1 74 20 117/63 95 Room Air 98.1 I & O I & O Intake and Output 09/08/16 07:00 Intake Total 200 ml Output Total 2000 ml Balance -1800 ml Intake Oral 200 ml Output Urine Total 2000 ml ALLERGIES Allergies: Allergies Coded Allergies Type Severity Reaction Last Updated Verified No Known Drug Allergies 04/27/15 No MEDS Medications: Current Medications Medications (Trade) Dose Ordered Sig/Alfredo Start Time Stop Time Status Last Admin Dose Admin Acetaminophen/ Hydrocodone Bitart (Lortab 5/325) 1 tab Q4HRS PRN 09/06/16 17:45 09/08/16 07:48 1 TAB Apixaban (Eliquis) 5 mg BID 09/07/16 21:00 09/08/16 08:36 5 MG Aspirin (Children'S Aspirin) 81 mg DAILYWBKFT 09/07/16 08:00 09/08/16 08:36 81 MG Atorvastatin Calcium (Lipitor) 40 mg QHS 09/06/16 21:00 09/07/16 21:02 40 MG Cyclobenzaprine HCl (Flexeril) 10 mg TID PRN 09/06/16 17:45 Diltiazem HCl (Cardizem 24hr Cd) 180 mg DAILY 09/07/16 13:00 09/08/16 08:36 180 MG Diltiazem HCl (Cardizem) 5 mg 1X ONCE 09/06/16 15:30 09/06/16 16:00 DC 09/06/16 17:03 5 MG Diltiazem HCl/ Dextrose (Cardizem) 125 ml @ 0 mls/hr CONT PRN 09/06/16 15:30 09/07/16 10:58 DC 09/06/16 17:06 10 MLS/HR Duloxetine HCl (Cymbalta) 60 mg DAILY 09/07/16 09:00 09/08/16 08:36 60 MG Enoxaparin Sodium (Lovenox 80mg Syringe) 80 mg Q12HR 09/06/16 16:00 09/07/16 10:58 DC 09/07/16 08:36 80 MG Enoxaparin Sodium (Lovenox Per Pharmacy Treatment Dosing) 1 each PRN DAILY PRN 09/06/16 15:30 09/07/16 10:58 DC Gabapentin (Neurontin) 300 mg QHS 09/06/16 21:00 09/07/16 21:02 300 MG Info (Anti-Coagulation Monitoring By Pharmacy) 1 each PRN DAILY PRN 09/07/16 14:45 09/07/16 14:52 1 EACH Metformin HCl (Glucophage) 500 mg DAILYWBKFT 09/07/16 08:00 09/08/16 08:36 500 MG Ondansetron HCl 4 mg 4 mg PRN Q8HRS PRN 09/06/16 17:45 Pantoprazole Sodium (Protonix) 40 mg DAILYAC 09/07/16 07:30 09/08/16 07:47 40 MG Phenobarbital (Luminal) 32.4 mg TID 09/06/16 21:00 09/08/16 08:36 32.4 MG Sodium Chloride (Iv Sodium Chloride 0.45%) 1,000 ml @ 125 mls/hr Q8H 09/06/16 17:45 09/07/16 21:02 125 MLS/HR Sodium Chloride 3 ml 3 ml PRN DAILY PRN 09/06/16 14:45 LAB Lab: Laboratory Tests Test 09/07/16 17:10 09/07/16 22:31 09/08/16 05:00 09/08/16 07:32 Glucose (Fingerstick) 114mg/dL (70-99) 117mg/dL (70-99) 96mg/dL (70-99) Sodium Level 139mmol/L (136-145) Potassium Level 4.3mmol/L (3.5-5.1) Chloride Level 104mmol/L (98-107) Carbon Dioxide Level 27mmol/L (21-32) Anion Gap 8 (6-14) Blood Urea Nitrogen 34mg/dL (7-20) Creatinine 1.0mg/dL (0.6-1.0) Estimated GFR (Cockcroft-Gault) 54.1 Glucose Level 86mg/dL (70-99) Calcium Level 8.6mg/dL (8.5-10.1) Test 09/08/16 11:30 Glucose (Fingerstick) 92mg/dL (70-99) SUSAN JEFFREY MD Sep 08, 2016 12:35
--- NOTE | 2016-09-08 13:12 | PDOC ---
SUBJECTIVE ROS F/up ELIAS DOing and feelin gmuch better OBJECTIVE Vital Signs Vital Signs Date Time Temp Pulse Resp B/P Pulse Ox O2 Delivery O2 Flow Rate FiO2 09/08/16 11:00 98.1 74 20 117/63 95 Room Air 98.1 I & 0 Intake and Output 09/08/16 07:00 Intake Total 200 ml Output Total 2000 ml Balance -1800 ml Intake Oral 200 ml Output Urine Total 2000 ml PHYSICAL EXAM Physical Exam General Appearance: Awake: Alert Oriented x 3 Neck: No JVD or JVP Chest: CTA [place] Heart: S1 S2 Abdomen - Soft NTND Extremities - No Edema DIAGNOSIS/ASSESSMENT Assessment & Plan General Appearance: Awake Alert Oriented x 3 In no Distress Eyes: VIsion Unchanged Conjunctiva Normal EN: No EN Drainage Mucous Memb. moist Neck: no JVD no JVP Supple no Thyromegaly CVS: S1 S2 no Murmur No Gallop No Rub tr Edema Resp: no Rales no Rhonchi no Acc. Muscle use GI: BAS +ve NO Bruit Non Tender Non Distended : no CVA tenderness; no Suprapubic Tenderness SKIN: no Rashes Breast Exam deferred (? Bug bite on Rt Shin area) Mu.Sk: Adequate ROM no Muscle Atrophy Heme: Unable to palpate Obvious LAD n o palp Splenomegaly NEURO: Good Strength and Tone Cranial Nerves II - XII grossly intact Psych: not Depressed no Active hallucination Vital Signs Vital Signs Date Time Temp Pulse Resp B/P Pulse Ox O2 Delivery O2 Flow Rate FiO2 09/07/16 09:43 93 Room Air 09/07/16 07:55 97.5 96 16 133/57 97.5 Assessment & Plan ARF/ SUspect VMn from [facility] (asso with RVR), dehydration from lasix, hypotension and ? Bactrim effect : now resolved Vol Depeltion - better after IVF Low Plts - defer to Dr Jones to F/up - ? due to Bactrim HypoTN:resolveed Will be available as needed Problems: COMMENT/RELEVANT DATA Meds Current Medications Medications (Trade) Dose Ordered Sig/Alfredo Start Time Stop Time Status Last Admin Dose Admin Acetaminophen/ Hydrocodone Bitart (Lortab 5/325) 1 tab Q4HRS PRN 09/06/16 17:45 09/08/16 07:48 1 TAB Apixaban (Eliquis) 5 mg BID 09/07/16 21:00 09/08/16 08:36 5 MG Aspirin (Children'S Aspirin) 81 mg DAILYWBKFT 09/07/16 08:00 09/08/16 08:36 81 MG Atorvastatin Calcium (Lipitor) 40 mg QHS 09/06/16 21:00 09/07/16 21:02 40 MG Cyclobenzaprine HCl (Flexeril) 10 mg TID PRN 09/06/16 17:45 Diltiazem HCl (Cardizem 24hr Cd) 180 mg DAILY 09/07/16 13:00 09/08/16 08:36 180 MG Diltiazem HCl (Cardizem) 5 mg 1X ONCE 09/06/16 15:30 09/06/16 16:00 DC 09/06/16 17:03 5 MG Diltiazem HCl/ Dextrose (Cardizem) 125 ml @ 0 mls/hr CONT PRN 09/06/16 15:30 09/07/16 10:58 DC 09/06/16 17:06 10 MLS/HR Duloxetine HCl (Cymbalta) 60 mg DAILY 09/07/16 09:00 09/08/16 08:36 60 MG Enoxaparin Sodium (Lovenox 80mg Syringe) 80 mg Q12HR 09/06/16 16:00 09/07/16 10:58 DC 09/07/16 08:36 80 MG Enoxaparin Sodium (Lovenox Per Pharmacy Treatment Dosing) 1 each PRN DAILY PRN 09/06/16 15:30 09/07/16 10:58 DC Gabapentin (Neurontin) 300 mg QHS 09/06/16 21:00 09/07/16 21:02 300 MG Info (Anti-Coagulation Monitoring By Pharmacy) 1 each PRN DAILY PRN 09/07/16 14:45 09/07/16 14:52 1 EACH Metformin HCl (Glucophage) 500 mg DAILYWBKFT 09/07/16 08:00 09/08/16 08:36 500 MG Ondansetron HCl 4 mg 4 mg PRN Q8HRS PRN 09/06/16 17:45 Pantoprazole Sodium (Protonix) 40 mg DAILYAC 09/07/16 07:30 09/08/16 07:47 40 MG Phenobarbital (Luminal) 32.4 mg TID 09/06/16 21:00 09/08/16 08:36 32.4 MG Sodium Chloride (Iv Sodium Chloride 0.45%) 1,000 ml @ 125 mls/hr Q8H 09/06/16 17:45 09/07/16 21:02 125 MLS/HR Sodium Chloride 3 ml 3 ml PRN DAILY PRN 09/06/16 14:45 Lab Laboratory Tests Test 09/07/16 17:10 09/07/16 22:31 09/08/16 05:00 09/08/16 07:32 Glucose (Fingerstick) 114mg/dL (70-99) 117mg/dL (70-99) 96mg/dL (70-99) Sodium Level 139mmol/L (136-145) Potassium Level 4.3mmol/L (3.5-5.1) Chloride Level 104mmol/L (98-107) Carbon Dioxide Level 27mmol/L (21-32) Anion Gap 8 (6-14) Blood Urea Nitrogen 34mg/dL (7-20) Creatinine 1.0mg/dL (0.6-1.0) Estimated GFR (Cockcroft-Gault) 54.1 Glucose Level 86mg/dL (70-99) Calcium Level 8.6mg/dL (8.5-10.1) Test 09/08/16 11:30 Glucose (Fingerstick) 92mg/dL (70-99) Other Findings: Both kidneys are within normal limits in size. The right kidney measures 11.4 cm in length. The left kidney measures 11.1 cm in length. A 1.1 cm simple cyst is seen involving the lower pole of the left kidney. There appears to be an extrarenal pelvis involving the right kidney. No hydronephrosis is seen. The urinary bladder is distended with urine. Bilateral ureteral jets are seen which implies patency of both collecting system. The post void residual of the urinary bladder is 47.8 mm. Impression: No hydronephrosis is seen. NNAMDI RODRIGUEZ MD Sep 08, 2016 13:12
--- NOTE | 2016-09-08 13:25 | PDOC ---
PROGRESS NOTES Subjective Subjective The patient looks and feels better today. Objective Objective Vital Signs Date Time Temp Pulse Resp B/P Pulse Ox O2 Delivery O2 Flow Rate FiO2 09/08/16 11:00 98.1 74 20 117/63 95 Room Air 98.1 Intake and Output 09/08/16 07:00 Intake Total 200 ml Output Total 2000 ml Balance -1800 ml Intake Oral 200 ml Output Urine Total 2000 ml Physical Exam Abdomen: Normal bowel sounds Heart: Other (irregular rhythm) General: No acute distress Lungs: Clear to auscultation Assessment Assessment 1. atrial fib, RVR suspect not new but recurrence with abrupt cessation of diltiazem 5 days ago requested records from [facility] - no response rate controlled - okay for home on oral calcium channel lázaro. [id number] = 5 corresponding to 7.2% stroke risk per year - will start Lovenox with dosing per pharmacy based on Cr Cl (labs pending) for stroke prevention previously treated with Xarelto - agreeable to resuming OAC at least for immediate future due to potential need for DCCV - would need OAC for 4 - 6 weeks prior to performing this prefers different med and will start Eliquis 5 mg BID 2. substernal CP troponin levels not consistent with ACS echo with preserved LV function and no WMA; mild valvular heart disease ? related to atrial fib vs GERD - pain resolved with HR control consider outpatient MPI if not done recently 3. HTN control with meds 4. HLD LDLs = 82 continue statin therapy Comment Review of Relevant I have reviewed the following items aguilar (where applicable) has been applied. Labs Laboratory Tests Test 09/06/16 14:15 09/06/16 15:05 09/06/16 17:08 09/06/16 20:38 Urine Collection Type Unknown Urine Color Yellow Urine Clarity Clear Urine pH 5.0 Urine Specific [place] 1.015 Urine Protein Negativemg/dL (NEG-TRACE) Urine Glucose (UA) Negativemg/dL (NEG) Urine Ketones (Stick) Negativemg/dL (NEG) Urine Blood Negative (NEG) Urine Nitrite Negative (NEG) Urine Bilirubin Negative (NEG) Urine Urobilinogen Dipstick 0.2mg/dL (0.2 mg/dL) Urine Leukocyte Esterase Negative (NEG) Urine RBC Occ/HPF (0-2) Urine WBC 1-4/HPF (0-4) Urine Bacteria 0/HPF (0-FEW) Urine Hyaline Casts Many/HPF Urine Mucus Slight/LPF White Blood Count 2.7x10^3/uL (4.0-11.0) Red Blood Count 4.06x10^6/uL (3.50-5.40) Hemoglobin 13.1g/dL (12.0-15.5) Hematocrit 40.0% (36.0-47.0) Mean Corpuscular Volume 99fL (79-100) Mean Corpuscular Hemoglobin 32pg (25-35) Mean Corpuscular Hemoglobin Concent 33g/dL (31-37) Red Cell Distribution Width 13.7% (11.5-14.5) Platelet Count 62x10^3/uL (140-400) Neutrophils (%) (Auto) 73% (31-73) Lymphocytes (%) (Auto) 15% (24-48) Monocytes (%) (Auto) 7% (0-9) Eosinophils (%) (Auto) 5% (0-3) Basophils (%) (Auto) 1% (0-3) Neutrophils # (Auto) 2.0x10^3uL (1.8-7.7) Lymphocytes # (Auto) 0.4x10^3/uL (1.0-4.8) Monocytes # (Auto) 0.2x10^3/uL (0.0-1.1) Eosinophils # (Auto) 0.1x10^3/uL (0.0-0.7) Basophils # (Auto) 0.0x10^3/uL (0.0-0.2) Prothrombin Time 14.4SEC (11.7-14.0) Prothromb Time International Ratio 1.2 (0.8-1.1) Sodium Level 140mmol/L (136-145) Potassium Level 4.7mmol/L (3.5-5.1) Chloride Level 101mmol/L (98-107) Carbon Dioxide Level 28mmol/L (21-32) Anion Gap 11 (6-14) Blood Urea Nitrogen 52mg/dL (7-20) Creatinine 1.4mg/dL (0.6-1.0) Estimated GFR (Cockcroft-Gault) 36.7 Glucose Level 89mg/dL (70-99) Calcium Level 9.4mg/dL (8.5-10.1) Magnesium Level 2.1mg/dL (1.8-2.4) Troponin I Quantitative < 0.017ng/mL (0.000-0.055) OE-Idj-S-Type Natriuretic Peptide 4227pg/mL (0-449) Thyroid Stimulating Hormone (TSH) 3.582uIU/mL (0.358-3.74) Glucose (Fingerstick) 88mg/dL (70-99) 102mg/dL (70-99) Test 09/06/16 21:00 09/07/16 03:00 09/07/16 08:28 09/07/16 12:23 Troponin I Quantitative < 0.017ng/mL (0.000-0.055) < 0.017ng/mL (0.000-0.055) Triglycerides Level 133mg/dL (0-150) Cholesterol Level 158mg/dL (0-200) LDL Cholesterol, Calculated 82mg/dL (0-100) VLDL Cholesterol, Calculated 27mg/dL (0-40) HDL Cholesterol 49mg/dL (40-60) Cholesterol/HDL Ratio 3.2 Glucose (Fingerstick) 86mg/dL (70-99) 99mg/dL (70-99) Test 09/07/16 17:10 09/07/16 22:31 09/08/16 05:00 09/08/16 07:32 Glucose (Fingerstick) 114mg/dL (70-99) 117mg/dL (70-99) 96mg/dL (70-99) Sodium Level 139mmol/L (136-145) Potassium Level 4.3mmol/L (3.5-5.1) Chloride Level 104mmol/L (98-107) Carbon Dioxide Level 27mmol/L (21-32) Anion Gap 8 (6-14) Blood Urea Nitrogen 34mg/dL (7-20) Creatinine 1.0mg/dL (0.6-1.0) Estimated GFR (Cockcroft-Gault) 54.1 Glucose Level 86mg/dL (70-99) Calcium Level 8.6mg/dL (8.5-10.1) Test 09/08/16 11:30 Glucose (Fingerstick) 92mg/dL (70-99) Laboratory Tests Test 09/07/16 17:10 09/07/16 22:31 09/08/16 05:00 09/08/16 07:32 Glucose (Fingerstick) 114mg/dL (70-99) 117mg/dL (70-99) 96mg/dL (70-99) Sodium Level 139mmol/L (136-145) Potassium Level 4.3mmol/L (3.5-5.1) Chloride Level 104mmol/L (98-107) Carbon Dioxide Level 27mmol/L (21-32) Anion Gap 8 (6-14) Blood Urea Nitrogen 34mg/dL (7-20) Creatinine 1.0mg/dL (0.6-1.0) Estimated GFR (Cockcroft-Gault) 54.1 Glucose Level 86mg/dL (70-99) Calcium Level 8.6mg/dL (8.5-10.1) Test 09/08/16 11:30 Glucose (Fingerstick) 92mg/dL (70-99) Medications Current Medications Sodium Chloride 3 ml 3 ml PRN DAILY PRN IV AFTER MEDS AND BLOOD DRAWS; Start at 14:45 Diltiazem HCl/ Dextrose (Cardizem) 125 ml @ 0 mls/hr CONT PRN IV SEE I/O RECORD Last administered on 09/06/16 17:06; Start 09/06/16 at 15:30; Stop at 10:58; Status DC Diltiazem HCl (Cardizem) 5 mg 1X ONCE IVP Last administered on 09/06/16 17:03 ; Start 09/06/16 at 15:30; Stop 09/06/16 at 16:00; Status DC Enoxaparin Sodium (Lovenox Per Pharmacy Treatment Dosing) 1 each PRN DAILY PRN MC SEE COMMENTS; Start 09/06/16 at 15:30; Stop 09/07/16 at 10:58; Status DC Enoxaparin Sodium (Lovenox 80mg Syringe) 80 mg Q12HR SQ Last administered on 08:36; Start 09/06/16 at 16:00; Stop 09/07/16 at 10:58; Status DC Aspirin (Children'S Aspirin) 81 mg DAILYWBKFT PO Last administered on 09/08/16 08:36; Start 09/07/16 at 08:00 Atorvastatin Calcium (Lipitor) 40 mg QHS PO Last administered on 09/07/16 21:02 ; Start 09/06/16 at 21:00 Cyclobenzaprine HCl (Flexeril) 10 mg TID PRN PO BREAKTHROUGH PAIN; Start at 17:45 Gabapentin (Neurontin) 300 mg QHS PO Last administered on 09/07/16 21:02; Start 09/06/16 at 21:00 Acetaminophen/ Hydrocodone Bitart (Lortab 5/325) 1 tab Q4HRS PRN PO PAIN Last administered on 09/08/16 07:48; Start 09/06/16 at 17:45 Metformin HCl (Glucophage) 500 mg DAILYWBKFT PO Last administered on 09/08/16 08:36; Start 09/07/16 at 08:00 Phenobarbital (Luminal) 32.4 mg TID PO Last administered on 09/08/16 08:36; Start 09/06/16 at 21:00 Duloxetine HCl (Cymbalta) 60 mg DAILY PO Last administered on 09/08/16 08:36; Start 09/07/16 at 09:00 Pantoprazole Sodium (Protonix) 40 mg DAILYAC PO Last administered on 09/08/16 07:47; Start 09/07/16 at 07:30 Ondansetron HCl 4 mg 4 mg PRN Q8HRS PRN PO NAUSEA/VOMITING; Start 09/06/16 at 17 :45 Sodium Chloride (Iv Sodium Chloride 0.45%) 1,000 ml @ 125 mls/hr Q8H IV Last administered on 09/07/16 21:02; Start 09/06/16 at 17:45 Diltiazem HCl (Cardizem 24hr Cd) 180 mg DAILY PO ; Start 09/07/16 at 11:00; Stop 09/07/16 at 12:44; Status DC Apixaban (Eliquis) 5 mg BID PO Last administered on 09/08/16 08:36; Start at 21:00 Diltiazem HCl (Cardizem 24hr Cd) 180 mg DAILY PO Last administered on 09/08/16 08:36; Start 09/07/16 at 13:00 Info (Anti-Coagulation Monitoring By Pharmacy) 1 each PRN DAILY PRN MC SEE COMMENTS Last administered on 09/07/16t 14:52; Start 09/07/16 at 14:45 Active Scripts Active Reported Cymbalta (Duloxetine Hcl) 60 Mg Capsule.dr 60 Mg PO DAILY Zofran (Ondansetron Hcl) 4 Mg Tablet 4 Mg PO Q8HRS PRN Aspirin 81 Mg Tab.chew 81 Mg PO DAILY Hydrocodone-Apap 5-325 (Hydrocodone Bit/Acetaminophen) 1 Each Tablet 1 Tab PO Q4-6HRS PRN Omeprazole 40 Mg Capsule.dr 40 Mg PO DAILY Furosemide 40 Mg Tablet 120 Mg PO DAILY Metoprolol Succinate ( Xl ) (Metoprolol Succinate) 100 Mg Tab.er.24h 100 Tab PO DAILY Atorvastatin Calcium 40 Mg Tablet 40 Tab PO QHS Cyclobenzaprine Hcl 10 Mg Tablet 10 Tab PO TID PRN Taztia Xt (Diltiazem Hcl) 300 Mg Capsule.er 300 Mg PO DAILY Clonidine Hcl 0.1 Mg Tablet 0.1 Mg PO PRN QHS Gabapentin 300 Mg Capsule 300 Cap PO QHS Phenobarbital 32.4 Mg Tablet 32.4 Mg PO TID Lisinopril 40 Mg Tablet 1 Tab PO DAILY Metformin Hcl 500 Mg Tablet 500 Tab PO DAILY Vitals/I & O Vital Sign - Last 24 Hours 09/07/16 09/07/16 09/07/16 09/07/16 13:40 15:00 19:00 19:40 Temp 98.6 98.6 Pulse 120 120 110 Resp 18 20 B/P 101/66 103/65 124/70 Pulse Ox 94 94 O2 Delivery Room Air Room Air Room Air 09/07/16 09/07/16 09/07/16 09/08/16 21:59 22:59 23:35 02:45 Temp 98.0 98.1 98.0 98.1 Pulse 111 102 Resp 20 20 20 B/P 123/73 115/69 Pulse Ox 95 96 O2 Delivery Room Air Room Air Room Air Room Air 09/08/16 09/08/16 09/08/16 09/08/16 07:00 07:48 08:00 08:36 Temp 97.9 97.9 Pulse 91 102 Resp 18 18 B/P 132/86 115/69 Pulse Ox 97 O2 Delivery Room Air Room Air Room Air 09/08/16 09/08/16 08:53 11:00 Temp 98.1 98.1 Pulse 74 Resp 16 20 B/P 117/63 Pulse Ox 95 O2 Delivery Room Air Intake and Output 09/07/16 09/07/16 09/08/16 15:00 23:00 07:00 Intake Total 200 ml Output Total 1750 ml 250 ml Balance -1750 ml -50 ml JUAN CARLOS SOTOMAYOR MD Sep 08, 2016 13:25
[2016-09-08] MEDS ORDERED: DILT240C2 PO (13:35)
[2016-09-08] MEDS ORDERED: APIX5TAB PO ×2 (14:32→14:33)
[2016-09-08] MEDS: ANTI-COAG MONITOR BY PHARMACY. MC PRN (15:48)
--- NOTE | 2016-09-09 05:47 | CONS ---
DATE OF CONSULTATION: HEMATOLOGY CONSULTATION NOTE REQESTING PHYSICIAN: Dr. Jones REASON FOR CONSULTATION: Thrombocytopenia and leukopenia. HISTORY OF PRESENT ILLNESS: This is a very pleasant 76-year-old female who was diagnosed with anal squamous cell carcinoma (stage II) in 04/2015. She was treated with 5-FU and mitomycin-C with radiation under the care of Dr. Pang and Dr. Les Reddy. Her blood counts during treatment have decreased to profoundly low level, while it had recovered, it has not been recovered back to the normal range since her treatment. As of 04/2016, her total white count was 2.2, hemoglobin was 11.9 and platelet count at that time was 43. She had similar counts back in 11/2015 as well. She is admitted at this time with atrial fibrillation. Hematology consultation requested due to her low counts. PAST MEDICAL HISTORY: Diabetes, seizure disorder, hypertension, congestive heart failure, arthritis, history of appendectomy and history of hysterectomy. SOCIAL HISTORY: She is . Her is at bedside. She does not drink alcohol. She previously smoked tobacco in remote past. FAMILY HISTORY: Significant for brother who of pancreatic cancer at age 60. The brother also had MS for many years prior to his . REVIEW OF SYSTEMS: CONSTITUTIONAL: Negative. EYES: Negative. ENMT: negative. RESPIRATORY: Did have substernal chest pain that has since resolved. CARDIOVASCULAR: Substernal chest pain, atrial fibrillation, now with no symptoms. GASTROINTESTINAL: Negative. GENITOURINARY: Negative. MUSCULOSKELETAL: She reported having had stiffness if she lays in bed for a long time, although no symptoms at this time. DERMATOLOGY: Negative. NEUROLOGIC: Negative. HEMATOLOGIC: She denies any recent bleeding from the rectum, urinary tract, nose or gums. She does bruise easily. See low counts detail earlier in this note. PSYCHIATRIC: Negative. ENDOCRINE: Negative. PHYSICAL EXAMINATION: GENERAL: Reveals a cheerful 76-year-old female. She appears comfortable in bed, at bedside. VITAL SIGNS: Temperature 97.5, pulse 96, respiratory rate 16, blood pressure 133/57 and satting 93% on room air. Her oropharynx is clear. NECK: Supple. CHEST: Clear. CARDIOVASCULAR: Irregular rhythm consistent with atrial fibrillation. ABDOMEN: Soft. No overt hepatosplenomegaly. EXTREMITIES: Shows no pitting edema, although there is some residual hyperpigmentation in the right lower extremity along with a dark scab where she had cellulitis a month ago. No palpable lymph nodes in bilateral neck, supraclavicular. Her speech is normal. She does not exhibit any lateralizing signs. DIAGNOSTIC DATA: Chest x-ray from yesterday showed mild cardiomegaly as well as atherosclerosis, otherwise no acute changes. CBC from this hospitalization shows total white count of 2.7, hemoglobin 13.1 and platelets 62. Previous CBCs from 04/2016 and 11/2015 detailed as above. I also reviewed her outpatient CBC during treatment, and she had experienced significant myelosuppression while on treatment as well. ASSESSMENT: 1. Chronic thrombocytopenia and leukopenia since her chemoradiation for stage II anal carcinoma. Her current white count is consistent with her recent range and platelet count in fact looked to be slightly improved compared to the last platelet count in April and in 11/2015. 2. No intervention at this time for her low counts, and we hope for continued improvement in the future. 3. Anticoagulation for atrial fibrillation is fine so long as her platelet counts remain above 40 and that she does not exhibit bleeding. Discussed the above with the patient as well as her . She was asked to keep her followup appointment with Dr. Les Reddy and with Dr. Syed Pang. SHANIA GARNETT MD DR: LARA/tatyana JOB#: [id number] / [id number] SYED Lanza Joseph MD
== END 2016-09-08 15:00 | disposition home or self-care (01) | DRG 308 ==
LOC: 2 NORTH 13:44
PROVIDERS: ADMIT Internal Medicine; ATTEND Internal Medicine
DX: I48.91 Unspecified atrial fibrillation (principal); N17.0 Acute kidney failure with tubular necrosis; L03.115 Cellulitis of right lower limb; C21.0 Malignant neoplasm of anus, unspecified; L97.919 Non-pressure chronic ulcer of unspecified part of right lower leg with unspecified severity; M19.90 Unspecified osteoarthritis, unspecified site; E78.5 Hyperlipidemia, unspecified; D69.6 Thrombocytopenia, unspecified; D72.819 Decreased white blood cell count, unspecified; E11.622 Type 2 diabetes mellitus with other skin ulcer; G40.909 Epilepsy, unspecified, not intractable, without status epilepticus; I11.0 Hypertensive heart disease with heart failure; I50.9 Heart failure, unspecified; G62.9 Polyneuropathy, unspecified; I70.0 Atherosclerosis of aorta; K21.9 Gastro-esophageal reflux disease without esophagitis; Z80.0 Family history of malignant neoplasm of digestive organs; Z82.49 Family history of ischemic heart disease and other diseases of the circulatory system; Z83.3 Family history of diabetes mellitus; Z85.048 Personal history of other malignant neoplasm of rectum, rectosigmoid junction, and anus; Z87.891 Personal history of nicotine dependence; Z87.440 Personal history of urinary (tract) infections; Z90.49 Acquired absence of other specified parts of digestive tract; Z90.710 Acquired absence of both cervix and uterus; Z92.3 Personal history of irradiation; Z79.899 Other long term (current) drug therapy; Z98.890 Other specified postprocedural states
CPT/HCPCS: 36415; 71010; 76770; 80048; 80061; 81001; 82947; 83735; 83880; 84443; 84484; 85027; 85610; 87086; 93005; 93306; J1650; J3490

== ENCOUNTER 2017-01-02 12:46 | Inpatient (IN) | payer MEDICARE, BC ==
[~2017-01-02] VITALS: Ht 160 cm; Wt 81.7 kg
[~2017-01-02 12:46] MED LIST changes: +APIX5TAB PO; +ASPI81TA2 PO; +DILT240C2 PO; +DULO60CA6 PO; +HYDR-2666 PO; +OMEP40CA5 PO; +ONDA4TAB7 PO
[2017-01-02] MEDS ORDERED: METO100T11 PO (13:43)
[2017-01-02] MEDS ORDERED: HYDR-2672 PO (13:43)
[2017-01-02] MEDS ORDERED: LISI40TA PO (13:46)
[2017-01-02] MEDS ORDERED: PHEN32.42 PO (13:46)
[2017-01-02] MEDS ORDERED: FURO40TA4 PO (13:48)
[2017-01-02] MEDS ORDERED: SUCR1TAB PO (13:48)
[2017-01-02] MEDS ORDERED: ENOX40DI SQ (14:47)
[2017-01-02] MEDS ORDERED: ASPI-482 PO (14:47)
[2017-01-02] MEDS ORDERED: HYDROcodone/APAP 10/325 1 TAB TABLET PO PRN (15:00)
[2017-01-02] MEDS ORDERED: CYCLOBENZAPRINE 10 MG TABLET. PO PRN (15:00)
[2017-01-02 15:04] VITALS: BP 85/45
[2017-01-02] MEDS ORDERED: DILT240C2 PO (15:06)
[2017-01-02] MEDS ORDERED: IV NORMAL SALINE 1000ML BAG 1,000 ML IV ONE (15:15)
[2017-01-02 15:18] LABS: BASO % 1 % (0-3); EOS % 4 % (0-3); HEMATOCRIT 38.2 % (36.0-47.0); HEMOGLOBIN 12.8 g/dL (12.0-15.5); LYMPH # 0.5 x10^3/uL (1.0-4.8); LYMPH % 13 % (24-48); MEAN CORPUSCULAR HEMOGLOBIN 32 pg (25-35); MEAN CORPUSCULAR HGB CONC 34 g/dL (31-37); MEAN CORPUSCULAR VOLUME 96 fL (79-100); MONO % 8 % (0-9); NEUT % 74 % (31-73); PLATELET COUNT 78 x10^3/uL (140-400); RED BLOOD COUNT 3.97 x10^6/uL (3.50-5.40); RED CELL DISTRIBUTION WIDTH 13.9 % (11.5-14.5); WHITE BLOOD COUNT 3.9 x10^3/uL (4.0-11.0)
--- NOTE | 2017-01-02 15:28 | RAD ---
Indication chest pain. Hypotension. A single view of the chest was obtained. Comparison is made to a study 4 months earlier. There is mild cardiomegaly, unchanged. There is no congestive heart failure. There is no focal infiltrate. A significant change compared to the previous exam is not seen. IMPRESSION: No acute or focal process. No significant change
--- NOTE | 2017-01-02 15:33 | PDOC2 ---
CARDIAC CONSULT DATE OF CONSULT Date of Consult DATE: 01/02/17 TIME: 15:28 REASON FOR CONSULT Reason for Consult: Chest Pain REFERRING PHYSICIAN Referring Physician: Dr. Jones SOURCE Source: Chart review, Patient HISTORY OF PRESENT ILLNESS HISTORY OF PRESENT ILLNESS This is a 76 yo female who presets as a direct admit from Dr. Jones's office with complaints of chest pain. Patient reports pain has been ongoing for the last week. Located in her central chest. Describes as a constant pressure. No exacerbating factors. Seems to be improved with rubbing her chest. Associated with nausea. No SOA, palpitations, dizziness, diaphoresis, orthopnea, or LE edema. Also complaining of abdominal pain and reports that she as send here for a "scope". Reports compliance with medications. PAST MEDICAL HISTORY Past Medical History Cardiovascular: HTN, Hyperlipidemia, AFIB Pulmonary: No pertinent hx, Other (DVT with IVC filter placement) CENTRAL NERVOUS SYSTEM: Seizure (last episode - 1992) GI: GERD Heme/Onc: Cancer Hepatobiliary: No pertinent hx Psych: No pertinent hx Musculoskeletal: low back pain, Osteoarthritis Rheumatologic: No pertinent hx Infectious disease: No pertinent hx ENT: No pertinent hx Renal/: No pertinent hx Endocrine: Diabetes Dermatology: No pertinent hx PAST SURGICAL HISTORY Past Surgical History Appendectomy, Hysterectomy, Other (right ankle - screws; IVC filter) FAMILY HISTORY Family History: Stroke SOCIAL HISTORY Social History Smoke: Quit (as a young adult) ALCOHOL: none Lives: with Family ALLERGIES ALLERGIES: Coded Allergies: No Known Drug Allergies (Unverified , 04/27/15) ROS Review of System 14 point ROS conducted with pertinent positives noted above in HPI. PHYSICAL EXAM PHYSICAL EXAM General: Alert, Oriented X3, Cooperative, No acute distress HEENT: Atraumatic, PERRLA Lungs: Clear to auscultation, Normal air movement. no tenderness. Heart: Normal S1, Normal S2, No murmurs, Other (IRRR; tele: atrial fib) Abdomen: Normal bowel sounds, mild LUQ tenderness Extremities: No edema, Normal pulses Skin: No rashes, intact Neuro: Normal speech Psych/Mental Status: Mental status NL, Mood NL MUSCULOSKELETAL: Osteoarthritic changes both hands VITALS VITALS Vital Signs Date Time Temp Pulse Resp B/P (MAP) Pulse Ox O2 Delivery O2 Flow Rate FiO2 01/02/17 15:04 98.5 72 16 85/45 (58) 94 Room Air 98.5 LABS Lab: Laboratory Tests Test 01/02/17 15:05 White Blood Count 3.9 x10^3/uL (4.0-11.0) Red Blood Count 3.97 x10^6/uL (3.50-5.40) Hemoglobin 12.8 g/dL (12.0-15.5) Hematocrit 38.2 % (36.0-47.0) Mean Corpuscular Volume 96 fL (79-100) Mean Corpuscular Hemoglobin 32 pg (25-35) Mean Corpuscular Hemoglobin Concent 34 g/dL (31-37) Red Cell Distribution Width 13.9 % (11.5-14.5) Platelet Count 78 x10^3/uL (140-400) Neutrophils (%) (Auto) 74 % (31-73) Lymphocytes (%) (Auto) 13 % (24-48) Monocytes (%) (Auto) 8 % (0-9) Eosinophils (%) (Auto) 4 % (0-3) Basophils (%) (Auto) 1 % (0-3) Neutrophils # (Auto) 2.9 x10^3uL (1.8-7.7) Lymphocytes # (Auto) 0.5 x10^3/uL (1.0-4.8) Monocytes # (Auto) 0.3 x10^3/uL (0.0-1.1) Eosinophils # (Auto) 0.2 x10^3/uL (0.0-0.7) Basophils # (Auto) 0.0 x10^3/uL (0.0-0.2) ECHOCARDIOGRAM ECHOCARDIOGRAM <Conclusion> The left ventricle is normal size. The left ventricular systolic function is normal and the ejection fraction is within normal range. The Ejection Fraction is 55-60%. There is mild concentric left ventricular hypertrophy. There is no significant aortic valvular stenosis. Doppler and Color Flow revealed mild aortic regurgitation. Doppler and Color-flow revealed mild mitral regurgitation. Doppler and Color Flow revealed mild tricuspid regurgitation. The PA pressure was estimated at 41 mmHg. DATE: 09/06/16 8755 ASSESSMENT/PLAN ASSESSMENT/PLAN 1. Chest pain, atypical troponin levels pending; trend overnight recent echo with an EF of 55-60% without WMA ASA. check lipid NPO after MN. Given risk risk factors and symptoms, will proceed with MPI in an to evaluate for ischemia. 2. atrial fib, chronic resume Cardizem for rate control. [id number] = 5 corresponding to 7.2% stroke risk per year Xarelto discontinued recently due to rectal bleeding Continue with ASA for stroke prevention 3. HTN presently hypotensive will give fluid bolus labs all pending as patient was a direct admit; suspect mild dehydration hold antiHTN therapy as warranted 4. HLD LDL= 82 09/20 continue statin therapy 5. DM, II per primary service 6. GERD/abdominal pain PPI GI following Problems: CAMDEN GARCIA APRN Jan 02, 2017 15:33
[2017-01-02 15:44] LABS: CALCIUM 9.3 mg/dL (8.5-10.1); GFR 24.3; POTASSIUM 4.2 mmol/L (3.5-5.1)
--- NOTE | 2017-01-02 15:55 | PDOC2 ---
GI CONSULT Reason For Consult: EGD HPI: HPI: Seen w/ Dr. Rivera. 76 y/o female directly admitted from Dr. Jones's office. Has some chronic pain problems but has had more significant problems w/ upper abdominal or chest pain pain ("breast bone"), very low abdominal pain, low back pain, pain between her shoulder blades, and neck pain. Says her family has been praying for her and this has helped. She had similar chest pain in 09/2016 when she was off her Cardizem. Pain is constant and unrelated to eating. She' s not sure about GERD symptoms but does take omeprazole and sucralfate. Had an EGD years ago, not sure of findings, says she's here to have another. Take Excedrin twice weekly for headaches and narcotics for back pain. 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 (Note chart lists h/o "colitis.") H/o alternating diarrhea and constipation during chemoradiation, not bothersome now. She has lost some weight recently. Note hypotension. D/w cardiology; possible stress test tomorrow. PMH: PMH: per chart - A Fib, CHF, DVT, DM, HLD, headaches, arthritis, urinary incontinence , diverticulosis, anal cancer (path w/ basaloid squamous cell carcinoma) s/p radiation and chemo, thrombocytopenia, neutropenia, hysterectomy, appendectomy, IVC filter, rib fractures, right ankle surgery, back surgery FH: Family History: No pertinent hx Social History: Smoke: Quit ALCOHOL: none Drugs: None ROS: GEN: Denies fevers, chills, sweats HEENT: Denies blurred vision, sore throat CV: +chest pain RESP: Denies shortness of air, cough GI: Per HPI : Denies hematuria, dysuria ENDO: +weight loss NEURO: Denies confusion, dizziness MSK: +back and neck pain SKIN: Denies jaundice, pruritus Vitals: Vitals: Vital Signs Date Time Temp Pulse Resp B/P (MAP) Pulse Ox O2 Delivery O2 Flow Rate FiO2 01/02/17 15:04 98.5 72 16 85/45 (58) 94 Room Air 98.5 Labs: Labs: Laboratory Tests Test 01/02/17 15:05 White Blood Count 3.9 x10^3/uL (4.0-11.0) Red Blood Count 3.97 x10^6/uL (3.50-5.40) Hemoglobin 12.8 g/dL (12.0-15.5) Hematocrit 38.2 % (36.0-47.0) Mean Corpuscular Volume 96 fL (79-100) Mean Corpuscular Hemoglobin 32 pg (25-35) Mean Corpuscular Hemoglobin Concent 34 g/dL (31-37) Red Cell Distribution Width 13.9 % (11.5-14.5) Platelet Count 78 x10^3/uL (140-400) Neutrophils (%) (Auto) 74 % (31-73) Lymphocytes (%) (Auto) 13 % (24-48) Monocytes (%) (Auto) 8 % (0-9) Eosinophils (%) (Auto) 4 % (0-3) Basophils (%) (Auto) 1 % (0-3) Neutrophils # (Auto) 2.9 x10^3uL (1.8-7.7) Lymphocytes # (Auto) 0.5 x10^3/uL (1.0-4.8) Monocytes # (Auto) 0.3 x10^3/uL (0.0-1.1) Eosinophils # (Auto) 0.2 x10^3/uL (0.0-0.7) Basophils # (Auto) 0.0 x10^3/uL (0.0-0.2) Allergies: Coded Allergies: No Known Drug Allergies (Unverified , 04/27/15) Medications: Please see EMR. Imaging: Imaging: CXR 01/02/17 PENDING PE: GEN: NAD HEENT: Atraumatic, PERRL LUNGS: clear anteriorly HEART: S1S2 ABD: NABS, S/ND, not particularly tender SKIN: No rashes, no jaundice NEURO/PSYCH: A & O 3 A/P: A/P: Chest, back, upper abdominal pain -?chronic, more bothersome for 6 days -takes narcotics and Excedrin at home -h/o A Fib, CHF ?h/o GERD - asymptomatic currently -on omeprazole and sucralfate -EGD years ago, would like another H/o anal cancer s/p chemoradiation, neutropenia, thrombocytopenia Weight loss CRC screen -last colonoscopy 04/2015 w/ Dr. Suni Brown -- Agree w/ workup per cardiology. Consider EGD later if indicated. DEYSI VELEZ Jan 02, 2017 15:55
[2017-01-02] MEDS: FUROSEMIDE 40 MG TABLET. PO SCH (16:00)
[2017-01-02] MEDS ORDERED: ONDANSETRON ODT 4 MG TAB.RAPDIS. PO PRN (16:15)
[2017-01-02] MEDS: SUCRALFATE 1 GM TABLET. PO SCH (17:18)
[2017-01-02 19:50] VITALS: BP 86/53
[2017-01-02] MEDS: ATORVASTATIN CALCIUM 40 MG TABLET. PO SCH (21:41)
[2017-01-02] MEDS ORDERED: PHENobarbital 32.4 MG TABLET. PO ONE (22:15)
[2017-01-02 23:40] VITALS: BP 83/52
[2017-01-03] VITALS (7 sets, daily range): BP systolic 81–127; BP diastolic 52–87
--- NOTE | 2017-01-03 06:39 | ACF ---
Admission Forms Criteria CARDIOLOGY GRG Clinical Indications for Admission to Inpatient Care ( Place 'X' for any and all applicable criteria): Hospital admission is needed for appropriate care of the patient because of ANY ONE of the following (1): [ ] I. Hemodynamic instability as indicated by ALL of the following (1)(2)(3) (4)(5) [ ]a) Vital signs or other findings not as expected for chronic patient condition or baseline [ ]b) Instability indicated by ANY ONE of the following: [ ]i) Hypotension [ ]ii) Symptomatic Tachycardia unresponsive to treatment ( e.g., analgesia, fluids, sedation as indicated) [ ]iii) Inadequate perfusion indicated by ANY ONE of the following: [ ] 1) Lactic acidosis (> 2 mmol/L) [ ] 2) New abnormal capillary refill (> 3 seconds) [ ] 3) Reduced urine output [ ] 4) New altered mental status [ ]iv) Orthostatic vital sign changes unresponsive to treatment (e.g., fluids) [ ]v) IV inotropic or vasopressor medication required to maintain adequate blood pressure or perfusion [ ] II. Severe heart failure as indicated by ANY ONE of the following(17)(18) [ ]a) Respiratory distress [ ]b) Hypotension [ ]c) Anasarca (refractory to outpatient therapy) [ ]d) Cardiac arrhythmias of immediate concern [ ]e) Myocardial ischemia [ ] III. Cardiac arrhythmias or findings of immediate concern indicated by ANY ONE of the following (19)(20): [ ] a) Heart rhythms that are inherently dangerous or unstable indicated by ANY ONE of the following (21)(22)(23): [ ] i) Resuscitated ventricular fibrillation or cardiac arrest [ ] ii) Ventricular escape rhythm [ ] iii) Sustained ventricular tachycardia (30 seconds or more of ventricular rhythm at greater than 100 beats per minute) [ ] iv) Nonsustained ventricular tachycardia and ANY ONE of the following: [ ] 1) Suspected cardiac ischemia as cause or consequence of ventricular tachycardia [ ] 2) In setting of acute myocarditis [ ] b) Unstable cardiac conduction defects indicated by ANY ONE of the following(23)(24)(25) [ ] i) Type II second-degree atrioventricular block [ ]ii) Third-degree atrioventricular block [ ]iii) New-onset left bundle branch block with suspected myocardial ischemia [ ]c) Any heart rhythm and ANY ONE of the following (21)(22)(26)(27) (28) [ ] i) Continuous long-term ECG monitoring needed (e.g., initiation of drug requiring monitoring for more than 24 hours) [ ] ii) Patient has automatic implanted cardioverter defibrillator that is repeatedly firing, malfunctioning, or in need of immediate adjustment of settings beyond the scope of ambulatory or observation care [ ]d) Heart rhythms of concern due to ANY ONE of the following: [ ] i) Hypotension [ ] ii) Respiratory distress [ ] iii) Association with other significant symptoms (e.g., bradycardia with syncope or ongoing dizziness, supraventricular tachycardia with chest pain (14)(15)(17) [ ] IV. Monitoring for cardiac contusion beyond the scope of observation care needed [A](30)(31)(32) [ ] V. Surgical or device complication (e.g., valve replacement complication , pacemaker dysfunction) (35)(41)(44)(45)(46) [ ] . Inpatient palliative care needed. [B](49) Also use Inpatient Palliative Care Criteria [ ] VII. Nonbacterial thrombotic (marantic) endocarditis (36)(43)(47)(48) [X] VIII. Cardiology condition, symptom, or finding for which emergency and observation care has failed or are not considered appropriate. [ ] IX. Acute valvular disease requiring inpatient as indicated by ANY ONE of the following (41) [ ]a) Acute valvular regurgitation (42) [ ]b) Noninfectious valvulitis (43) [ ]c) Obstructive valve thrombosis [ ]d) Paravalvular leak [ ]e) Other significant valvular disorder remaining after emergency or observation level of care (as appropriate) [ ]X. Pericardial disease requiring inpatient treatment as indicated by ANY ONE of the following (33)(34)(35)(36)(37) [ ]a) Suspected tamponade (38)(39)(40) [ ]b) Hemopericardium [ ]c) Other significant pericardial disorder remaining after emergency or observation level of care (as appropriate) [ ] XI. Cardiac ischemia beyond scope of emergency and observation care. [ ] XII. Hypertension requiring inpatient treatment as indicated by ANY ONE of the following (6)(7)(8) [ ]a) SBP greater than 220 mm Hg or DBP greater than 120 mmHg despite treatment [ ]b) SBP greater than 140 mm Hg or DBP greater than 100 mm Hg with evidence of acute end organ damage as indicated by ANY ONE of the following [ ] i) Encephalopathy [ ] ii) Acute renal failure as indicated by new onset of ANY ONE of the following (9)(10)(11)(12)(13) [ ]1) 3-fold rise in serum creatinine from baseline [ ]2) Serum creatinine greater than 4 mg/dL ( 354 micromoles/L) with acute rise greater than 0.5 mg/dL (44.2 micromoles/L) [ ]3) Reduction of more than 75% in estimated glomerular filtration rate from baseline [ ]4) Estimated glomerular filtration rate less than 35 mL/min/1.73m2 (0.59 mL/sec/1.73m2) in child up to 18 years of age [ ]5) Cessation of urine output indicated by ALL of the following [ ]A. Adequate volume status [ ]B. Inadequate urine output as indicated by ANY ONE of the following [ ]a. Urine output less than 0.3 mL/kg/hr for 24 hours [ ]b. Anuria (urine output less than 0.1 mL/kg/hr) for 12 hours [ ] iii) Aortic dissection [ ] iv) Myocardial Ischemia [ ] v) Left ventricular heart failure [ ]vi) Retinal Hemorrhage [ ]vii) Other significant finding [ ]c) Hypertension in child requiring inpatient treatment as indicated by ALL of the following(14)(15)(16) [ ] i) Outpatient treatment not effective, not available, or not appropriate [ ]ii) SBP or DBP greater than 95th percentile for age [ ]iii) Evidence of acute end organ damage as indicated by ANY ONE of the following [ ]1) Altered mental status [ ]2) Acute renal failure as indicated by new onset of ANY ONE of the following(9)(10)(11)(12)(13) [ ]A. 3-fold rise in serum creatinine from baseline [ ]B. Serum creatinine greater than 4 mg/dL (354 micromoles/L) with acute rise greater than 0.5 mg/dL (44.2 micromoles/L) [ ]C. Reduction of more than 75% in estimated glomerular filtration rate from baseline [ ]D. Estimated glomerular filtration rate less than 35 mL/min/1.73m2 (0.59 mL/sec/1.73m2) in child up to 18 years of age [ ]E. Cessation of urine output indicated by ALL of the following [ ]a. Adequate volume status [ ]b. Inadequate urine output as indicated by ANY ONE of the following [ ]i) Urine output less than 0.3 mL/kg/hr for 24 hours [ ]ii) Anuria ( urine output less than 0.1 mL/kg/hr) for 12 hours [ ]3) Severe headache [ ]4) Visual disturbance [ ]5) Retinal hemorrhage [ ]6) Other significant finding [ ]XIII. Complications of transplanted heart indicated by ANY ONE of the following(61): [ ]a) Acute graft rejection requiring inpatient management (eg, intravenous immunosuppression)(62)(63) [ ]b) Acute graft heart failure indicated by ANY ONE of the following(64): [ ]i) Hemodynamic instability [ ]ii) Cardiac arrhythmias of immediate concern [ ]iii) Pulmonary edema that is very severe (eg, mechanical ventilation needed, imminent or likely, need for 100% oxygen to keep oxygen saturation above 90%) [ ]iv) Pulmonary edema that is persistent as indicated by ALL of the following: [ ]1) New need for oxygen therapy to keep oxygen saturation above 90% (or increased FiO2 need from baseline) [ ]2) Has not improved sufficiently with emergency department or observation care IV diuretics or other heart failure treatments[E] [ ]v) Altered mental status that is severe or persistent [ ]vi) Increased creatinine (new on laboratory test) with reduction of more than 50% in estimated glomerular filtration rate from baseline [ ]vii) Progressively (ongoing) rising creatinine (known from past laboratory test) with reduction of more than 25% in estimated glomerular filtration rate from baseline [ ]viii) Acute renal failure [ ]ix) Acute peripheral ischemia (eg, examination shows pulseless, cool, mottled, or cyanotic extremity) [ ]x) Pulmonary artery catheter monitoring needed [ ]xi) Other sign or symptom of heart failure requiring inpatient treatment (ie, too severe or not responsive to outpatient and observation care treatment) [ ]c) Infection requiring inpatient management (eg, Hemodynamic instability, need for intravenous antimicrobial treatment)(66)(67)(68)(69)(70) [ ]d) Cardiac allograft vasculopathy requiring inpatient management ( eg evidence of cardiac ischemia)(71) [ ]e) Other complication of transplanted heart (eg, stroke, severe pulmonary hypertension, severe valvular dysfunction) requiring inpatient management(72) The original [facility] content created by [facility] has been revised. The portions of the content which have been revised are identified through the use of italic text or in bold, and [facility] has neither reviewed nor approved the modified material. All other unmodified content is copyright [facility]. Please see references footnoted in the original [facility] edition 2016 JOSH BLAIR Jan 03, 2017 06:39
[2017-01-03] MEDS ORDERED: metFORMIN 500 MG TABLET PO SCH (08:00)
[2017-01-03] MEDS ORDERED: REGADENOSON 0.4 MG/5 ML DISP.SYRIN. IV ONE (08:30)
[2017-01-03] MEDS ORDERED: PHENobarbital 32.4 MG TABLET. PO SCH (09:00)
[2017-01-03] MEDS ORDERED: METOPROLOL SUCC 24HR ER 100 MG TAB.ER.24H. PO SCH (09:00)
[2017-01-03] MEDS ORDERED: LISINOPRIL 40 MG TABLET. PO SCH (09:00)
[2017-01-03] MEDS ORDERED: NON FORMULARY ITEM (Omeprazole 40 MG) PO SCH (09:00)
--- NOTE | 2017-01-03 09:49 | PDOC ---
Objective: Objective: Out for stress test, EGD has been requested. Vital Signs: Vital Signs Date Time Temp Pulse Resp B/P (MAP) Pulse Ox O2 Delivery O2 Flow Rate FiO2 01/03/17 08:12 98.7 107 12 81/66 (71) 95 Room Air 98.7 Labs: Laboratory Tests Test 01/02/17 15:05 01/02/17 20:45 01/03/17 00:01 01/03/17 06:43 White Blood Count 3.9 x10^3/uL Red Blood Count 3.97 x10^6/uL Hemoglobin 12.8 g/dL Hematocrit 38.2 % Mean Corpuscular Volume 96 fL Mean Corpuscular Hemoglobin 32 pg Mean Corpuscular Hemoglobin Concent 34 g/dL Red Cell Distribution Width 13.9 % Platelet Count 78 x10^3/uL Neutrophils (%) (Auto) 74 % Lymphocytes (%) (Auto) 13 % Monocytes (%) (Auto) 8 % Eosinophils (%) (Auto) 4 % Basophils (%) (Auto) 1 % Neutrophils # (Auto) 2.9 x10^3uL Lymphocytes # (Auto) 0.5 x10^3/uL Monocytes # (Auto) 0.3 x10^3/uL Eosinophils # (Auto) 0.2 x10^3/uL Basophils # (Auto) 0.0 x10^3/uL Sodium Level 138 mmol/L Potassium Level 4.2 mmol/L Chloride Level 100 mmol/L Carbon Dioxide Level 28 mmol/L Anion Gap 10 Blood Urea Nitrogen 84 mg/dL Creatinine 2.0 mg/dL Estimated GFR (Cockcroft-Gault) 24.3 Glucose Level 109 mg/dL Hemoglobin A1c 5.1 % Calcium Level 9.3 mg/dL Troponin I Quantitative 0.022 ng/mL < 0.017 ng/mL 0.022 ng/mL EL-Fpb-C-Type Natriuretic Peptide 4780 pg/mL Thyroid Stimulating Hormone (TSH) 2.574 uIU/mL Glucose (Fingerstick) 89 mg/dL PE: no exam A/P: Chest, back, upper abdominal pain ?h/o GERD -on omeprazole and sucralfate -- Stress test today. Will review need for EGD w/ Dr. Santa. DEYSI VELEZ Jan 03, 2017 09:49
--- NOTE | 2017-01-03 09:54 | PDOC ---
OBJECTIVE Vital Signs Vital Signs Date Time Temp Pulse Resp B/P (MAP) Pulse Ox O2 Delivery O2 Flow Rate FiO2 01/03/17 08:12 98.7 107 12 81/66 (71) 95 Room Air 98.7 01/03/17 07:30 98.7 107 14 83/67 (72) 95 Room Air 98.7 01/03/17 03:36 98.1 116 16 125/87 (100) 94 Room Air 98.1 01/02/17 23:40 98.6 94 18 83/52 (62) 95 Room Air 98.6 01/02/17 21:42 20 Room Air 01/02/17 20:00 Room Air 01/02/17 19:50 98.7 64 16 86/53 (64) 96 Room Air 98.7 01/02/17 15:04 98.5 72 16 85/45 (58) 94 Room Air 98.5 I & O Intake and Output 01/03/17 07:00 Intake Total 600 ml Balance 600 ml Intake Oral 600 ml # Voids 4 ASSESSMENT/PLAN Assessment/Plan [id number] H&P dictated Dr. Alfaro is covering this week end Problems: COMMENT Lab Laboratory Tests Test 01/02/17 15:05 01/02/17 20:45 01/03/17 00:01 01/03/17 06:43 White Blood Count 3.9 x10^3/uL (4.0-11.0) Red Blood Count 3.97 x10^6/uL (3.50-5.40) Hemoglobin 12.8 g/dL (12.0-15.5) Hematocrit 38.2 % (36.0-47.0) Mean Corpuscular Volume 96 fL (79-100) Mean Corpuscular Hemoglobin 32 pg (25-35) Mean Corpuscular Hemoglobin Concent 34 g/dL (31-37) Red Cell Distribution Width 13.9 % (11.5-14.5) Platelet Count 78 x10^3/uL (140-400) Neutrophils (%) (Auto) 74 % (31-73) Lymphocytes (%) (Auto) 13 % (24-48) Monocytes (%) (Auto) 8 % (0-9) Eosinophils (%) (Auto) 4 % (0-3) Basophils (%) (Auto) 1 % (0-3) Neutrophils # (Auto) 2.9 x10^3uL (1.8-7.7) Lymphocytes # (Auto) 0.5 x10^3/uL (1.0-4.8) Monocytes # (Auto) 0.3 x10^3/uL (0.0-1.1) Eosinophils # (Auto) 0.2 x10^3/uL (0.0-0.7) Basophils # (Auto) 0.0 x10^3/uL (0.0-0.2) Sodium Level 138 mmol/L (136-145) Potassium Level 4.2 mmol/L (3.5-5.1) Chloride Level 100 mmol/L (98-107) Carbon Dioxide Level 28 mmol/L (21-32) Anion Gap 10 (6-14) Blood Urea Nitrogen 84 mg/dL (7-20) Creatinine 2.0 mg/dL (0.6-1.0) Estimated GFR (Cockcroft-Gault) 24.3 Glucose Level 109 mg/dL (70-99) Hemoglobin A1c 5.1 % (4.8-5.6) Calcium Level 9.3 mg/dL (8.5-10.1) Troponin I Quantitative 0.022 ng/mL (0.000-0.055) < 0.017 ng/mL (0.000-0.055) 0.022 ng/mL (0.000-0.055) KG-Dss-I-Type Natriuretic Peptide 4780 pg/mL (0-449) Thyroid Stimulating Hormone (TSH) 2.574 uIU/mL (0.358-3.74) Glucose (Fingerstick) 89 mg/dL (70-99) SILVERIO ASKEW MD Jan 03, 2017 09:54
--- NOTE | 2017-01-03 10:43 | HP ---
AD[id number]. HISTORY OF PRESENT ILLNESS: The patient is a 76-year-old admitted to room 207. She presented to the office for a prescheduled office visit for regular checkup. On that visit, she stated that she has been having some discomfort in the epigastric and retrosternal area. She also had been feeling some palpitations. She just did not feel good and did not feel like normal. An EKG was done in the office and she was in atrial fibrillation. She did have a history of paroxysmal atrial fibrillation in the past and was hospitalized for that before. She was to take anticoagulation because she was in paroxysmal atrial fibrillation; however, she stated that every time she took Xarelto she would have blood in her stool and discomfort in her epigastric area. She stopped taking that and had done fairly okay. Her rate in the office was about 105, which also was a little high. The patient did not say that there was anything that made the chest pain worse or better. It was there on and off, but she could not see any relationship to exercise or eating. She stated that sometimes this improved by rubbing her epigastric area. She did have some nausea as well, but denies shortness of breath. She did have palpitation. She did not have dizziness or diaphoresis. Did not notice any increased swelling in the lower extremities. She has reported to her rectal surgeon symptoms of blood in the stool when she takes her anticoagulation and her rectal surgeon recommended that she have an EGD. She recently had a colonoscopy, which was negative by the rectal surgeon and it was not felt by her that the rectal bleed is due to lower GI. She wanted her to see a route driver salesperson and had given her referral for that. PAST MEDICAL HISTORY: Significant for peripheral neuropathy, seizure disorder, diastolic congestive heart failure, hyperlipidemia, paroxysmal atrial fibrillation, hypertension, previous history of DVT and inferior vena cava filter, gastroesophageal reflux disease. She had a history of hemorrhoidectomy and she had a history of rectal cancer that was treated with radiation. She has been cleared by her rectal surgeon after having a colonoscopy and was told that the bleed that she is experiencing is not due to rectal problem. She was given a referral to GI. She also does have a history of diverticulosis, hemorrhoids, obesity. History of hysterectomy, urinary incontinence, osteoarthritis, back pain, bilateral knee pain and history of right ankle fracture with pin and screws in 2008 due to a fall, history of diabetes, which is usually well controlled. SOCIAL HISTORY: She is a nonsmoker at the present time. She smoked about 10 years and quit 30 years ago. She does not drink alcohol, does not use drugs. She had her flu shot and pneumonia vaccine. FAMILY HISTORY: Positive for hypertension and diabetes. REVIEW OF SYSTEMS: CONSTITUTIONAL: No fever or chills, did not feel good in general. EYES: Without vision changes. HENT: No sore throat or congestion. PULMONARY: No shortness of breath. CARDIOLOGY: See HPI. GASTROINTESTINAL: She did have epigastric pain and reports rectal bleeding while taking anticoagulation. She had seen a rectal surgeon and apparently had a colonoscopy, which was unrevealing. She was referred by her rectal surgeon to see GI for an EGD. GENITOURINARY: She does have stress incontinence. No dysuria. NEUROLOGY: No focal deficit. MUSCULOSKELETAL: She does have osteoarthritis and chronic pain in her knees and back. PHYSICAL EXAMINATION: GENERAL: She is alert and oriented, in no acute distress, cooperative. HEENT: Tympanic membranes clear. Pharynx clear. HEART: Irregularly irregular. LUNGS: Clear to auscultation. ABDOMEN: Soft. She does have epigastric tenderness. No rebound, no guarding, no masses, no bruits, no ascites. EXTREMITIES: She has no edema, clubbing or cyanosis. IMPRESSION: 1. Chest pain, atypical and seems to have some GI component. Her troponin is negative. She is admitted. Cardiology is consulted. 2. Atrial fibrillation, paroxysmal. The patient had been in sinus rhythm when I saw her in the office last month and the month before. She is back in atrial fibrillation now. She does need to have anticoagulation; however, this was stopped recently due to bleeding. 3. Hypertension, hypertensive cardiovascular disease. 4. Hyperlipidemia. 5. Diabetes mellitus, good control. 6. Gastroesophageal reflux disease and epigastric pain. She has been on PPI recently. was added. She continues to have GI issues. 7. Neuropathy. 8. Diabetes mellitus. SILVERIO ASKEW MD DR: SANDIP/tatyana JOB#: [id number] / [id number]
[2017-01-03] MEDS: SUCRALFATE 1 GM TABLET. PO SCH ×3 (10:45→16:43)
[2017-01-03] MEDS: PANTOPRAZOLE 40 MG TABLET.DR. PO SCH (10:45)
[2017-01-03] MEDS: PHENobarbital 32.4 MG TABLET. PO SCH ×3 (10:47→20:26)
[2017-01-03] MEDS: ASPIRIN ENTERIC COATED 81 MG TABLET.DR. PO SCH (10:48)
[2017-01-03] MEDS: HYDROcodone/APAP 10/325 1 TAB TABLET PO PRN ×2 (11:04→22:48)
[2017-01-03] MEDS: FUROSEMIDE 40 MG TABLET. PO SCH ×2 (11:44→16:03)
--- NOTE | 2017-01-03 12:06 | RAD ---
APPROVED REPORT Test Type: Pharmacological Stress Nurse/Tech: Ashley Cabrera R.N. Test Indications: Chest pain Cardiac History: Hypertension, Diabetes, A fib Medications: See Electronic Medical Record Medical History: See Electronic Medical Record Resting ECG: a fib Resting Heart Rate: 112 bpm Resting Blood Pressure: 113/58mmHg Pretest Chest Pain: No chest pain Nurse/Tech Notes S1S2, lungs sound clear Consent: The procedure was explained to the patient in lay terms. Informed consent was witnessed. [employer] eout was entered into [employer]. History and Stress Test performed by Ashley Cabrera R.N. Pharm. Details Pharmacologic stress testing was performed using 0.4mg per 5ml of regadenoson given intravenously ove r 7-10 seconds. Stress Symptoms Dyspnea, pain in abd POST EXERCISE Reason for Termination: Infusion complete Max Blood Pressure: 115/61mmHg Blood Pressure response to exercise: Normal blood pressure response during stress. Chest Pain: No. Arrhythmia: No. ST Change: No. INTERPRETATION Stress EKG Conclusion: No evidence of stress induced EKG changes. Afib with RVR. Imaging Protocol IMAGE PROTOCOL: Rest Tc-99m/stress Tc-99m 1 day Rest: Stress: Viability: Radiopharm.Tc99m EbyubfehfQh29e Sestamibi Tlow83vZw 33mCi Img Date 01/03/2017 01/03/2017 Inj-Img [id number]. 60min. Rest Admin Site:IV - Right ForearmAdministrator:KEISHA White, ARRT (R)(N) Stress Admin Site: IV - Right ForearmAdministrator: Turner Akhtar, RT (R)(N) STRESS DATA End Diast. Vol.64.0mlAv. Heart Fxdg115.0bpm End Syst. Vol.20.0mlCO Index BSA0.0L/min Myocardial Mass97.0gEject. Kodjnbxq26.0% Stress Rates Pk. Fill Rate3.72EDV/secLVtime Pk. Fill 125.54msec Pk. Empty Rate4.07ESV/secLVtime Pk. Eject94.20msec 08/06 Pk. Fill2.06EDV/sec Stress Scores Regional WT2.00Summed WT28.00 Regional WM0.00Summed WM11.00 The rest and stress images show normal perfusion, normal contraction and thickening. LV Perf. Quant 17 Seg. SSS0.00 17 Seg. SRS0.00 17 Seg. SDS0.00 Stress Defect Extent (% LAD)0.00Rest Defect Extent (% LAD)0.00Rev. Defect Extent (% LAD)0.00 Stress Defect Extent (% LCX) 0.00Rest Defect Extent (% LCX)0.00Rev. Defect Extent (% LCX)0.00 Stress Defect Extent (% RCA)0.00Rest Defect Extent (% RCA)0.00Rev. Defect Extent (% RCA)0.00 Stress Defect Extent (% DAVI)0.00Rest Defect Extent (% DAVI)0.00Rev. Defect Extent (% DAVI)0.00 Other Information Quality:Average Risk Assessment: Low Risk Conclusion 1. No evidence of stress induced EKG changes. 2. Normal perfusion at stress/rest. 3. Normal EF at > 60% 4. Low risk study.
--- NOTE | 2017-01-03 12:52 | PDOC ---
CARDIO Progress Notes Date and Time Date of Service 01/03/17 Time of Evaluation 1230 Subjective Subjective: No Chest Pain, No shortness of breath, No Palpitations, Other ( "belly" pain) Vitals Vitals Vital Signs Date Time Temp Pulse Resp B/P (MAP) Pulse Ox O2 Delivery O2 Flow Rate FiO2 01/03/17 12:09 Room Air 01/03/17 11:30 97.6 106 16 127/59 (81) 98 97.6 Weight Weight [ ] Input and Output Intake and Output Intake and Output 01/03/17 06:59 Intake Total 600 ml Balance 600 ml Intake Oral 600 ml # Voids 4 Laboratory Labs Laboratory Tests Test 01/02/17 15:05 01/02/17 20:45 01/03/17 00:01 01/03/17 06:43 White Blood Count 3.9 x10^3/uL (4.0-11.0) Red Blood Count 3.97 x10^6/uL (3.50-5.40) Hemoglobin 12.8 g/dL (12.0-15.5) Hematocrit 38.2 % (36.0-47.0) Mean Corpuscular Volume 96 fL (79-100) Mean Corpuscular Hemoglobin 32 pg (25-35) Mean Corpuscular Hemoglobin Concent 34 g/dL (31-37) Red Cell Distribution Width 13.9 % (11.5-14.5) Platelet Count 78 x10^3/uL (140-400) Neutrophils (%) (Auto) 74 % (31-73) Lymphocytes (%) (Auto) 13 % (24-48) Monocytes (%) (Auto) 8 % (0-9) Eosinophils (%) (Auto) 4 % (0-3) Basophils (%) (Auto) 1 % (0-3) Neutrophils # (Auto) 2.9 x10^3uL (1.8-7.7) Lymphocytes # (Auto) 0.5 x10^3/uL (1.0-4.8) Monocytes # (Auto) 0.3 x10^3/uL (0.0-1.1) Eosinophils # (Auto) 0.2 x10^3/uL (0.0-0.7) Basophils # (Auto) 0.0 x10^3/uL (0.0-0.2) Sodium Level 138 mmol/L (136-145) Potassium Level 4.2 mmol/L (3.5-5.1) Chloride Level 100 mmol/L (98-107) Carbon Dioxide Level 28 mmol/L (21-32) Anion Gap 10 (6-14) Blood Urea Nitrogen 84 mg/dL (7-20) Creatinine 2.0 mg/dL (0.6-1.0) Estimated GFR (Cockcroft-Gault) 24.3 Glucose Level 109 mg/dL (70-99) Hemoglobin A1c 5.1 % (4.8-5.6) Calcium Level 9.3 mg/dL (8.5-10.1) Troponin I Quantitative 0.022 ng/mL (0.000-0.055) < 0.017 ng/mL (0.000-0.055) 0.022 ng/mL (0.000-0.055) TT-Ekw-N-Type Natriuretic Peptide 4780 pg/mL (0-449) Thyroid Stimulating Hormone (TSH) 2.574 uIU/mL (0.358-3.74) Glucose (Fingerstick) 89 mg/dL (70-99) Physical Exam HEENT: Neck Supple W Full Motion Chest: Symmetric LUNGS: Clear to Auscultation Heart: S1S2, no murmurs, irregularly irregular (tele AFIB rate 110-125) Abdomen: Soft N/T Extremities: No Edema, No Calf Tenderness Neurology: alert, oriented, follow commands Assessment Assessment 1. Chest pain, atypical AMI ruled out. recent echo with an EF of 55-60% without WMA MPI underway to r/o ischemia 2. PAFIB rate uncontrolled. Cardizem given this morning. BP will not support additional BB. Will give dose of Digoxin x1 now. [id number] = 5 corresponding to 7.2% stroke risk per year Xarelto discontinued recently due to GI bleeding Continue with ASA for stroke prevention 3. HTN remains hypotensive. Hold metoprolol and lisinopril 4. HLD LDL= 82 09/20 continue statin therapy 5. DM, II per primary service 6. ELIAS 7. GERD/abdominal pain PPI GI following CAMDEN GARCIA APRN Jan 03, 2017 12:52
[2017-01-03] MEDS ORDERED: DIGOXIN IV 500 MCG/2 ML AMPUL. IV ONE ×2 (13:00→15:00)
[2017-01-03] MEDS ORDERED: AMIODARONE 900 MG in IV DEXTROSE 5% 500 ML IV PRN (16:30)
[2017-01-03] MEDS ORDERED: AMIODARONE 150 MG in IV DEXTROSE 5% 100 ML IV ONE (17:00)
[2017-01-03] MEDS: ATORVASTATIN CALCIUM 40 MG TABLET. PO SCH (20:25)
[2017-01-04 03:35] VITALS: BP 88/46
[2017-01-04 07:45] VITALS: BP 93/53
[2017-01-04] MEDS: SUCRALFATE 1 GM TABLET. PO SCH ×3 (08:16→17:33)
[2017-01-04] MEDS: PANTOPRAZOLE 40 MG TABLET.DR. PO SCH (08:16)
--- NOTE | 2017-01-04 09:58 | PDOC ---
CIERA MCCONNELL [employer]AR[employer] TENDER 01/04/17 0958: PROGRESS NOTES Subjective Subjective no complaints. no chest pain, no lightheadedness no dyspnea. Objective Objective Vital Signs Date Time Temp Pulse Resp B/P (MAP) Pulse Ox O2 Delivery O2 Flow Rate FiO2 01/04/17 07:45 97.4 84 18 93/53 (66) 95 Room Air 97.4 Intake and Output 01/04/17 07:00 Intake Total 350 ml Balance 350 ml Intake Oral 350 ml # Voids 7 Physical Exam Abdomen: Normal bowel sounds, Soft, No tenderness Heart: Other (irregular rate and rhythm, no gallops) General: Alert, Oriented X3, Cooperative, No acute distress Lungs: Other (mild decreased in bases) Neuro: Normal speech, Strength at 5/5 X4 ext Psych/Mental Status: Mental status NL, Mood NL Assessment Assessment 1. Chest pain, atypical - Normal EF and wall motion by echo. Normal perfusion by MPI. Continue aspirin, statin, risk factor reduction. 2. PAFIB - RVR this am, currently rate controlled in the 80s on Cardizem and amiodarone. Continue Cardizem. No increase in dosing due to low bp. Consider additional digoxin every other day RVR continues. [id number] =5, no OAC due to recent GIB, continue aspirin. plan to change to oral amio this afternoon. ? follow up with [facility] for possible watchman. 3. HTN - mild hypotension - beta lázaro and GAYLE held 4. HLD - continue statin 5. DM, II - per PCP Comment Review of Relevant I have reviewed the following items aguilar (where applicable) has been applied. Labs Laboratory Tests Test 01/02/17 15:05 01/02/17 20:45 01/03/17 00:01 01/03/17 06:43 White Blood Count 3.9 x10^3/uL (4.0-11.0) Red Blood Count 3.97 x10^6/uL (3.50-5.40) Hemoglobin 12.8 g/dL (12.0-15.5) Hematocrit 38.2 % (36.0-47.0) Mean Corpuscular Volume 96 fL (79-100) Mean Corpuscular Hemoglobin 32 pg (25-35) Mean Corpuscular Hemoglobin Concent 34 g/dL (31-37) Red Cell Distribution Width 13.9 % (11.5-14.5) Platelet Count 78 x10^3/uL (140-400) Neutrophils (%) (Auto) 74 % (31-73) Lymphocytes (%) (Auto) 13 % (24-48) Monocytes (%) (Auto) 8 % (0-9) Eosinophils (%) (Auto) 4 % (0-3) Basophils (%) (Auto) 1 % (0-3) Neutrophils # (Auto) 2.9 x10^3uL (1.8-7.7) Lymphocytes # (Auto) 0.5 x10^3/uL (1.0-4.8) Monocytes # (Auto) 0.3 x10^3/uL (0.0-1.1) Eosinophils # (Auto) 0.2 x10^3/uL (0.0-0.7) Basophils # (Auto) 0.0 x10^3/uL (0.0-0.2) Sodium Level 138 mmol/L (136-145) Potassium Level 4.2 mmol/L (3.5-5.1) Chloride Level 100 mmol/L (98-107) Carbon Dioxide Level 28 mmol/L (21-32) Anion Gap 10 (6-14) Blood Urea Nitrogen 84 mg/dL (7-20) Creatinine 2.0 mg/dL (0.6-1.0) Estimated GFR (Cockcroft-Gault) 24.3 Glucose Level 109 mg/dL (70-99) Hemoglobin A1c 5.1 % (4.8-5.6) Calcium Level 9.3 mg/dL (8.5-10.1) Troponin I Quantitative 0.022 ng/mL (0.000-0.055) < 0.017 ng/mL (0.000-0.055) 0.022 ng/mL (0.000-0.055) ZC-Zev-[id number]-Type Natriuretic Peptide 4780 pg/mL (0-449) Thyroid Stimulating Hormone (TSH) 2.574 uIU/mL (0.358-3.74) Glucose (Fingerstick) 89 mg/dL (70-99) Test 01/03/17 20:41 01/04/17 08:10 Glucose (Fingerstick) 102 mg/dL (70-99) 94 mg/dL (70-99) Laboratory Tests Test 01/03/17 20:41 01/04/17 08:10 Glucose (Fingerstick) 102 mg/dL (70-99) 94 mg/dL (70-99) Medications Current Medications Diltiazem HCl (Cardizem Cd) 300 mg DAILY PO Last administered on 01/03/17 10:47 ; Start 01/02/17 at 15:00 Aspirin (Ecotrin) 81 mg DAILY PO Last administered on 01/03/17 10:48; Start 01/03/17 at 09:00 Atorvastatin Calcium (Lipitor) 40 mg QHS PO Last administered on 01/03/17 20:25 ; Start 01/02/17 at 21:00 Cyclobenzaprine HCl (Flexeril) 10 mg PRN TID PRN PO BREAKTHROUGH PAIN Last administered on 01/02/17 21:42; Start 01/02/17 at 15:00 Diltiazem HCl (Cardizem 24hr Cd) 300 mg DAILY PO ; Start 01/03/17 at 09:00; Status Cancel Enoxaparin Sodium (Lovenox 100mg Syringe) 100 mg Q24H SQ Last administered on 16:44; Start 01/02/17 at 17:00 Furosemide (Lasix) 40 mg BID92 PO Last administered on 01/03/17 11:44; Start at 16:00 Acetaminophen/ Hydrocodone Bitart (Lortab 10/325) 1 tab PRN QID PRN PO PAIN Last administered on 01/02/17 21:42; Start 01/02/17 at 15:00; Stop 01/03/17 at 10: 05; Status DC Lisinopril (Prinivil) 40 mg DAILY PO ; Start 01/03/17 at 09:00 Metformin HCl (Glucophage) 500 mg DAILYWBKFT PO Last administered on 01/03/17 10:48; Start 01/03/17 at 08:00; Stop 01/03/17 at 15:52; Status DC Metoprolol Succinate (Toprol Xl) 100 mg DAILY PO ; Start 01/03/17 at 09:00 Phenobarbital (Luminal) 32.4 mg DAILY PO ; Start 01/03/17 at 09:00; Stop 01/03/17 at 09:00; Status DC Sucralfate (Carafate) 1 gm TIDBFRMEAL PO Last administered on 01/04/17 08:16; Start 01/02/17 at 16:30 Non-Formulary Medication 40 mg DAILY PO ; Start 01/03/17 at 09:00; Status UNV Ondansetron HCl (Zofran Odt) 4 mg PRN DAILY PRN PO NAUSEA/VOMITING; Start at 16:15 Sodium Chloride 1,000 ml @ 75 mls/hr 1X ONCE IV Last administered on 15:15; Start 01/02/17 at 15:15; Stop 01/03/17 at 04:34; Status DC Pantoprazole Sodium (Protonix) 40 mg DAILYAC PO Last administered on 01/04/17 08:16; Start 01/03/17 at 07:30 Phenobarbital (Luminal) 32.4 mg TID PO Last administered on 01/03/17 20:26; Start 01/03/17 at 09:00 Phenobarbital (Luminal) 32.4 mg 1X ONCE PO Last administered on 01/02/17 22:49 ; Start 01/02/17 at 22:15; Stop 01/02/17 at 22:16; Status DC Regadenoson (Lexiscan) 0.4 mg 1X ONCE IV Last administered on 01/03/17 08:30; Start 01/03/17 at 08:30; Stop 01/03/17 at 08:31; Status DC Acetaminophen/ Hydrocodone Bitart (Lortab 10/325) 2 tab PRN BID PRN PO PAIN Last administered on 01/03/17 22:48; Start 01/03/17 at 11:00 Digoxin (Lanoxin) 250 mcg 1X ONCE IV Last administered on 01/03/17 13:32; Start 01/03/17 at 13:00; Stop 01/03/17 at 13:01; Status DC Digoxin (Lanoxin) 250 mcg 1X ONCE IV Last administered on 01/03/17 14:48; Start 01/03/17 at 15:00; Stop 01/03/17 at 15:01; Status DC Amiodarone HCl 900 mg/Dextrose 518 ml @ 0 mls/hr CONT PRN IV SEE I/O RECORD Last administered on 01/03/17 17:29; Start 01/03/17 at 16:30; Stop 01/03/17 at 17: 31; Status DC Amiodarone HCl 150 mg/Dextrose 103 ml @ 618 mls/hr 1X ONCE IV Last administered on 01/03/17 17:07; Start 01/03/17 at 17:00; Stop 01/03/17 at 17:09; Status DC Active Scripts Active Reported Cardizem Cd (Diltiazem Hcl) 240 Mg Cap.er.24h 300 Mg PO DAILY Lovenox (Enoxaparin Sodium) 40 Mg/0.4 Ml Disp.syrin 100 Mg SQ Q12HR Aspir 81 (Aspirin) 81 Mg Tablet.dr 1 Tab PO DAILY Furosemide 40 Mg Tablet 40 Mg PO BID Sucralfate 1 Gm Tablet 1 Gm PO TIDBFRMEAL Lisinopril 40 Mg Tablet 40 Mg PO DAILY Phenobarbital 32.4 Mg Tablet 32.4 Mg PO HS Metoprolol Succinate ( Xl ) (Metoprolol Succinate) 100 Mg Tab.er.24h 100 Mg PO DAILY Hydrocodone-Apap 10-325 (Hydrocodone Bit/Acetaminophen) 1 Each Tablet 1 Tab PO PRN QID PRN Cardizem Cd (Diltiazem Hcl) 240 Mg Cap.er.24h 1 Cap PO DAILY LAST DOSE GIVEN: DATE:09/08/16 TIME:0800 NEXT DOSE DUE: DATE:09/09/16 TIME:return to previous schedule Indication: Heart rate/blood pressure Zofran (Ondansetron Hcl) 4 Mg Tablet 4 Mg PO DAILY PRN Omeprazole 40 Mg Capsule.dr 40 Mg PO DAILY LAST DOSE GIVEN: DATE:09/08/16 TIME:0800 NEXT DOSE DUE: DATE:09/09/16 TIME:per previous schedule Atorvastatin Calcium 40 Mg Tablet 40 Tab PO QHS LAST DOSE GIVEN: DATE: 09/07/16 TIME: 2100 NEXT DOSE DUE: DATE: 09/08/16 TIME: bedtime Indication: cholesterol Cyclobenzaprine Hcl 10 Mg Tablet 10 Tab PO TID PRN Take as needed, per prescription Indication: muscle relaxer Phenobarbital 32.4 Mg Tablet 32.4 Mg PO DAILY LAST DOSE GIVEN: DATE:09/08/16 TIME:0800 NEXT DOSE DUE: DATE:09/08/16 TIME:1400 Indication: seizure Metformin Hcl 500 Mg Tablet 500 Tab PO DAILY LAST DOSE GIVEN: DATE:09/08/16 TIME:0800 NEXT DOSE DUE: DATE:09/09/16 TIME:per previous schedule Vitals/I & O Vital Sign - Last 24 Hours 01/03/17 01/03/17 01/03/17 01/03/17 10:47 11:04 11:30 13:32 Temp 97.6 97.6 Pulse 107 106 110 Resp 16 16 B/P (MAP) 127/78 127/59 (81) 93/70 Pulse Ox 95 98 O2 Delivery Room Air Room Air 01/03/17 01/03/17 01/03/17 01/03/17 14:48 15:03 17:07 19:24 Temp 97.9 98.2 97.9 98.2 Pulse 114 112 107 64 Resp 16 16 B/P (MAP) 86/55 98/56 (70) 115/62 98/53 (68) Pulse Ox 95 96 O2 Delivery Room Air 01/03/17 01/03/17 01/03/17 01/03/17 20:00 22:15 22:48 23:48 Temp 98.2 98.2 Pulse 80 Resp 16 B/P (MAP) 96/52 (67) Pulse Ox 98 O2 Delivery Room Air Room Air Room Air Room Air 01/04/17 01/04/17 03:35 07:45 Temp 97.6 97.4 97.6 97.4 Pulse 87 84 Resp 14 18 B/P (MAP) 88/46 (60) 93/53 (66) Pulse Ox 96 95 O2 Delivery Room Air Room Air Intake and Output 01/03/17 01/03/17 01/04/17 15:00 23:00 07:00 Intake Total 100 ml 250 ml Balance 100 ml 250 ml JULIANNE FLORIAN MD 01/04/17 1036: PROGRESS NOTES Plan Plan of Care Pt. seen and examined. 76 y.o well known to me from clinic. Presenting with chest pressure and pain in the setting of afib with RVR, similar to her admission in Sep. Has also had hypotension and acute renal failure. Meds reviewed. Will stop Lisinopril, Toprol XL, Diltiazem and lasix. Repeat labs today. Start Amiodarone 200mg bid, Metoprolol 25mg q 6 hours. No good anti-arrhythmic options given her CKD and rate control options limited given severe hypotension. Normal MPI. Low suspicion for CAD, suspect most of her symptoms related to AFib with RVR. Pt. reluctant to take anticoagulation, prior mild hematochezia. Would strongly recommend given her age, risk factors, She will decide soon. Will follow along. CIERA MCCONNELL APRN Jan 04, 2017 09:58 JULIANNE FLORIAN MD Jan 04, 2017 10:36
--- NOTE | 2017-01-04 11:08 | PDOC ---
GENERAL General: vss and afebrile. chest pain mainly early am hours suggestive of ALEJA. ongoing a- fib with rvr and cardiology adjusting meds. mpi negative. chest clear and heart regular. continue same. Problems: VITAL SIGNS Vital Signs: Vital Signs Date Time Temp Pulse Resp B/P (MAP) Pulse Ox O2 Delivery O2 Flow Rate FiO2 01/04/17 08:00 Room Air 01/04/17 07:45 97.4 84 18 93/53 (66) 95 97.4 I & O I & O Intake and Output 01/04/17 07:00 Intake Total 350 ml Balance 350 ml Intake Oral 350 ml # Voids 7 ALLERGIES Allergies: Allergies Coded Allergies Type Severity Reaction Last Updated Verified No Known Drug Allergies 04/27/15 No MEDS Medications: Current Medications Medications (Trade) Dose Ordered Sig/Alfredo Start Time Stop Time Status Last Admin Dose Admin Acetaminophen/ Hydrocodone Bitart (Lortab 10/325) 2 tab PRN BID PRN 01/03/17 11:00 01/03/17 22:48 2 TAB Amiodarone HCl (Cordarone) 200 mg BID 01/04/17 11:00 Amiodarone HCl 150 mg/Dextrose 103 ml @ 618 mls/hr 1X ONCE 01/03/17 17:00 01/03/17 17:09 DC 01/03/17 17:07 618 MLS/HR Amiodarone HCl 900 mg/Dextrose 518 ml @ 0 mls/hr CONT PRN 01/03/17 16:30 01/03/17 17:31 DC 01/03/17 17:29 33.3 MLS/HR Aspirin (Ecotrin) 81 mg DAILY 01/03/17 09:00 01/03/17 10:48 81 MG Atorvastatin Calcium (Lipitor) 40 mg QHS 01/02/17 21:00 01/03/17 20:25 40 MG Cyclobenzaprine HCl (Flexeril) 10 mg PRN TID PRN 01/02/17 15:00 01/02/17 21:42 10 MG Digoxin (Lanoxin) 250 mcg 1X ONCE 01/03/17 15:00 01/03/17 15:01 DC 01/03/17 14:48 250 MCG Diltiazem HCl (Cardizem 24hr Cd) 300 mg DAILY 01/03/17 09:00 Cancel Diltiazem HCl (Cardizem Cd) 300 mg DAILY 01/02/17 15:00 01/04/17 10:31 DC 01/03/17 10:47 300 MG Enoxaparin Sodium (Lovenox 100mg Syringe) 100 mg Q24H 01/02/17 17:00 01/03/17 16:44 100 MG Furosemide (Lasix) 40 mg BID92 01/02/17 16:00 01/04/17 10:31 DC 01/03/17 11:44 40 MG Lisinopril (Prinivil) 40 mg DAILY 01/03/17 09:00 01/04/17 10:31 DC Metformin HCl (Glucophage) 500 mg DAILYWBKFT 01/03/17 08:00 01/03/17 15:52 DC 01/03/17 10:48 500 MG Metoprolol Succinate (Toprol Xl) 100 mg DAILY 01/03/17 09:00 01/04/17 10:31 DC Metoprolol Tartrate (Lopressor) 25 mg Q6HRS 01/04/17 11:00 Non-Formulary Medication 40 mg DAILY 01/03/17 09:00 UNV Ondansetron HCl (Zofran Odt) 4 mg PRN DAILY PRN 01/02/17 16:15 Pantoprazole Sodium (Protonix) 40 mg DAILYAC 01/03/17 07:30 01/04/17 08:16 40 MG Phenobarbital (Luminal) 32.4 mg 1X ONCE 01/02/17 22:15 01/02/17 22:16 DC 01/02/17 22:49 32.4 MG Regadenoson (Lexiscan) 0.4 mg 1X ONCE 01/03/17 08:30 01/03/17 08:31 DC 01/03/17 08:30 0.4 MG Sodium Chloride 1,000 ml @ 75 mls/hr 1X ONCE 01/02/17 15:15 01/03/17 04:34 DC 01/02/17 15:15 75 MLS/HR Sucralfate (Carafate) 1 gm TIDBFRMEAL 01/02/17 16:30 01/04/17 08:16 1 GM LAB Lab: Laboratory Tests Test 01/03/17 20:41 01/04/17 08:10 Glucose (Fingerstick) 102 mg/dL (70-99) 94 mg/dL (70-99) SUSAN JEFFREY MD Jan 04, 2017 11:08
[2017-01-04] MEDS: PHENobarbital 32.4 MG TABLET. PO SCH ×3 (11:22→21:12)
[2017-01-04] MEDS: ASPIRIN ENTERIC COATED 81 MG TABLET.DR. PO SCH (11:23)
[2017-01-04] MEDS: HYDROcodone/APAP 10/325 1 TAB TABLET PO PRN ×2 (11:23→21:14)
[2017-01-04 11:35] VITALS: BP 100/59
[2017-01-04 11:37] LABS: BASO % 0 % (0-3); EOS % 5 % (0-3); HEMATOCRIT 38.7 % (36.0-47.0); LYMPH # 0.4 x10^3/uL (1.0-4.8); LYMPH % 10 % (24-48); MEAN CORPUSCULAR HEMOGLOBIN 32 pg (25-35); MEAN CORPUSCULAR HGB CONC 34 g/dL (31-37); MEAN CORPUSCULAR VOLUME 96 fL (79-100); MONO % 8 % (0-9); NEUT % 76 % (31-73); PLATELET COUNT 73 x10^3/uL (140-400); RED BLOOD COUNT 4.03 x10^6/uL (3.50-5.40); RED CELL DISTRIBUTION WIDTH 13.8 % (11.5-14.5); WHITE BLOOD COUNT 3.8 x10^3/uL (4.0-11.0)
[2017-01-04 12:03] LABS: ALBUMIN 3.4 g/dL (3.4-5.0); CALCIUM 9.1 mg/dL (8.5-10.1); CREATININE 1.3 mg/dL (0.6-1.0); GFR 39.9; POTASSIUM 4.2 mmol/L (3.5-5.1); TOTAL BILIRUBIN 0.4 mg/dL (0.2-1.0); TOTAL PROTEIN 6.8 g/dL (6.4-8.2)
[2017-01-04 14:39] VITALS: BP 99/59
[2017-01-04] MEDS: AMIODARONE HCL 200 MG TABLET. PO SCH ×2 (14:42→21:15)
[2017-01-04] MEDS: METOPROLOL TART IMMED RELEASE 25 MG TABLET. PO SCH ×2 (14:43→17:37)
[2017-01-04 19:00] VITALS: BP 102/57
[2017-01-04] MEDS: ATORVASTATIN CALCIUM 40 MG TABLET. PO SCH (21:13)
[2017-01-04 23:00] VITALS: BP 97/59
[2017-01-05 03:00] VITALS: BP 101/67
[2017-01-05] MEDS: METOPROLOL TART IMMED RELEASE 25 MG TABLET. PO SCH ×3 (06:09→12:00)
[2017-01-05 07:52] VITALS: BP 100/60
[2017-01-05] MEDS: ASPIRIN ENTERIC COATED 81 MG TABLET.DR. PO SCH (08:19)
[2017-01-05] MEDS: PANTOPRAZOLE 40 MG TABLET.DR. PO SCH (08:19)
[2017-01-05] MEDS: SUCRALFATE 1 GM TABLET. PO SCH ×2 (08:19→12:24)
[2017-01-05] MEDS: AMIODARONE HCL 200 MG TABLET. PO SCH (08:20)
[2017-01-05] MEDS: HYDROcodone/APAP 10/325 1 TAB TABLET PO PRN (08:20)
[2017-01-05] MEDS: PHENobarbital 32.4 MG TABLET. PO SCH (09:00)
[2017-01-05 10:38] VITALS: BP 90/57
--- NOTE | 2017-01-05 11:49 | PDOC ---
GENERAL General: blood pressure still on low side but asymptomatic from same. heart rate controlled with current regimen. remains in a-fib with clear chest. feeling much better than in long time. renal function markedly improved likely due to holding lasix since admission. will defer to cardiology but likely dc later after they have seen. I have filled out med rec for dc if they are agreeable. she is pushing for dc. Problems: VITAL SIGNS Vital Signs: Vital Signs Date Time Temp Pulse Resp B/P (MAP) Pulse Ox O2 Delivery O2 Flow Rate FiO2 01/05/17 10:38 98.8 78 18 90/57 (68) 97 Room Air 98.8 I & O I & O Intake and Output 01/05/17 07:00 Intake Total 1900 ml Output Total 1 ml Balance 1899 ml Intake Oral 1900 ml Output Urine Total 1 ml # Voids 6 # Bowel Movements 1 ALLERGIES Allergies: Allergies Coded Allergies Type Severity Reaction Last Updated Verified No Known Drug Allergies 04/27/15 No MEDS Medications: Current Medications Medications (Trade) Dose Ordered Sig/Alfredo Start Time Stop Time Status Last Admin Dose Admin Acetaminophen/ Hydrocodone Bitart (Lortab 10/325) 2 tab PRN BID PRN 01/03/17 11:00 01/05/17 08:20 2 TAB Amiodarone HCl (Cordarone) 200 mg BID 01/04/17 11:00 01/05/17 08:20 200 MG Amiodarone HCl 150 mg/Dextrose 103 ml @ 618 mls/hr 1X ONCE 01/03/17 17:00 01/03/17 17:09 DC 01/03/17 17:07 618 MLS/HR Amiodarone HCl 900 mg/Dextrose 518 ml @ 0 mls/hr CONT PRN 01/03/17 16:30 01/03/17 17:31 DC 01/03/17 17:29 33.3 MLS/HR Aspirin (Ecotrin) 81 mg DAILY 01/03/17 09:00 01/05/17 08:19 81 MG Atorvastatin Calcium (Lipitor) 40 mg QHS 01/02/17 21:00 01/04/17 21:13 40 MG Cyclobenzaprine HCl (Flexeril) 10 mg PRN TID PRN 01/02/17 15:00 01/02/17 21:42 10 MG Digoxin (Lanoxin) 250 mcg 1X ONCE 01/03/17 15:00 01/03/17 15:01 DC 01/03/17 14:48 250 MCG Diltiazem HCl (Cardizem 24hr Cd) 300 mg DAILY 01/03/17 09:00 Cancel Diltiazem HCl (Cardizem Cd) 300 mg DAILY 01/02/17 15:00 01/04/17 10:31 DC 01/03/17 10:47 300 MG Enoxaparin Sodium (Lovenox 100mg Syringe) 100 mg Q24H 01/02/17 17:00 01/04/17 17:36 100 MG Furosemide (Lasix) 40 mg BID92 01/02/17 16:00 01/04/17 10:31 DC 01/03/17 11:44 40 MG Lisinopril (Prinivil) 40 mg DAILY 01/03/17 09:00 01/04/17 10:31 DC Metformin HCl (Glucophage) 500 mg DAILYWBKFT 01/03/17 08:00 01/03/17 15:52 DC 01/03/17 10:48 500 MG Metoprolol Succinate (Toprol Xl) 100 mg DAILY 01/03/17 09:00 01/04/17 10:31 DC Metoprolol Tartrate (Lopressor) 25 mg Q6HRS 01/04/17 11:00 01/05/17 06:09 25 MG Non-Formulary Medication 40 mg DAILY 01/03/17 09:00 UNV Ondansetron HCl (Zofran Odt) 4 mg PRN DAILY PRN 01/02/17 16:15 Pantoprazole Sodium (Protonix) 40 mg DAILYAC 01/03/17 07:30 01/05/17 08:19 40 MG Phenobarbital (Luminal) 32.4 mg 1X ONCE 01/02/17 22:15 01/02/17 22:16 DC 01/02/17 22:49 32.4 MG Regadenoson (Lexiscan) 0.4 mg 1X ONCE 01/03/17 08:30 01/03/17 08:31 DC 01/03/17 08:30 0.4 MG Sodium Chloride 1,000 ml @ 75 mls/hr 1X ONCE 01/02/17 15:15 01/03/17 04:34 DC 01/02/17 15:15 75 MLS/HR Sucralfate (Carafate) 1 gm TIDBFRMEAL 01/02/17 16:30 01/05/17 08:19 1 GM LAB Lab: Laboratory Tests Test 01/04/17 17:01 01/04/17 20:45 01/05/17 07:45 01/05/17 11:22 Glucose (Fingerstick) 87 mg/dL (70-99) 108 mg/dL (70-99) 92 mg/dL (70-99) 102 mg/dL (70-99) APPL,SUSAN Mancia MD Jan 05, 2017 11:49
[2017-01-05 15:10] VITALS: BP 90/76
--- NOTE | 2017-01-05 16:07 | PDOC ---
CARDIOLOGY PROGRESS NOTE SUBJECTIVE: No acute events overnight. Feels better today. Denies chest pain. HR better overnight. OBJECTIVE: Vital SIgns: Vital Signs Date Time Temp Pulse Resp B/P (MAP) Pulse Ox O2 Delivery O2 Flow Rate FiO2 01/05/17 15:10 97.9 84 18 90/76 (81) 94 Room Air 97.9 Objective: A/O x 3. NAd CVS: Irr irr. No m/r/g PULM: cTAB ABd: Soft, No edema. CURRENT MEDICATIONS: Current Medications Medications (Trade) Dose Ordered Sig/Alfredo Start Time Stop Time Status Last Admin Dose Admin Acetaminophen/ Hydrocodone Bitart (Lortab 10/325) 2 tab PRN BID PRN 01/03/17 11:00 01/05/17 08:20 2 TAB Amiodarone HCl (Cordarone) 200 mg BID 01/04/17 11:00 01/05/17 08:20 200 MG Amiodarone HCl 150 mg/Dextrose 103 ml @ 618 mls/hr 1X ONCE 01/03/17 17:00 01/03/17 17:09 DC 01/03/17 17:07 618 MLS/HR Amiodarone HCl 900 mg/Dextrose 518 ml @ 0 mls/hr CONT PRN 01/03/17 16:30 01/03/17 17:31 DC 01/03/17 17:29 33.3 MLS/HR Aspirin (Ecotrin) 81 mg DAILY 01/03/17 09:00 01/05/17 08:19 81 MG Atorvastatin Calcium (Lipitor) 40 mg QHS 01/02/17 21:00 01/04/17 21:13 40 MG Cyclobenzaprine HCl (Flexeril) 10 mg PRN TID PRN 01/02/17 15:00 01/02/17 21:42 10 MG Digoxin (Lanoxin) 250 mcg 1X ONCE 01/03/17 15:00 01/03/17 15:01 DC 01/03/17 14:48 250 MCG Diltiazem HCl (Cardizem 24hr Cd) 300 mg DAILY 01/03/17 09:00 Cancel Diltiazem HCl (Cardizem Cd) 300 mg DAILY 01/02/17 15:00 01/04/17 10:31 DC 01/03/17 10:47 300 MG Enoxaparin Sodium (Lovenox 100mg Syringe) 100 mg Q24H 01/02/17 17:00 01/04/17 17:36 100 MG Furosemide (Lasix) 40 mg BID92 01/02/17 16:00 01/04/17 10:31 DC 01/03/17 11:44 40 MG Lisinopril (Prinivil) 40 mg DAILY 01/03/17 09:00 01/04/17 10:31 DC Metformin HCl (Glucophage) 500 mg DAILYWBKFT 01/03/17 08:00 01/03/17 15:52 DC 01/03/17 10:48 500 MG Metoprolol Succinate (Toprol Xl) 100 mg DAILY 01/03/17 09:00 01/04/17 10:31 DC Metoprolol Tartrate (Lopressor) 25 mg Q6HRS 01/04/17 11:00 01/05/17 06:09 25 MG Non-Formulary Medication 40 mg DAILY 01/03/17 09:00 UNV Ondansetron HCl (Zofran Odt) 4 mg PRN DAILY PRN 01/02/17 16:15 Pantoprazole Sodium (Protonix) 40 mg DAILYAC 01/03/17 07:30 01/05/17 08:19 40 MG Phenobarbital (Luminal) 32.4 mg 1X ONCE 01/02/17 22:15 01/02/17 22:16 DC 01/02/17 22:49 32.4 MG Regadenoson (Lexiscan) 0.4 mg 1X ONCE 01/03/17 08:30 01/03/17 08:31 DC 01/03/17 08:30 0.4 MG Sodium Chloride 1,000 ml @ 75 mls/hr 1X ONCE 01/02/17 15:15 01/03/17 04:34 DC 01/02/17 15:15 75 MLS/HR Sucralfate (Carafate) 1 gm TIDBFRMEAL 01/02/17 16:30 01/05/17 12:24 1 GM ASSESSMENT: 1. Afib with RVR (Not on anticoagulation due to prior hematochezia). Referred to [facility] for watchman 2. Previous hypertension, now hypotensive 3. Atypical chest pain - MPI negative. Problems: PLAN: 1. Will DC on amiodarone 200mg daily 2. Also decrease metop to 25mg bid 3. Ronald and cardizem discon due to low BP while hospitalized. F/u in clinic in 1 week. Ok to DC. Thanks. JULIANNE FLORIAN MD Jan 05, 2017 16:07
[2017-01-05] MEDS ORDERED: METO25TA4 PO (17:17)
[2017-01-05] MEDS ORDERED: AMIO200T2 PO (17:23)
--- NOTE | 2017-01-06 06:59 | DS ---
DATE OF DISCHARGE: 01/05/2017 PRIMARY DIAGNOSIS: Atrial fibrillation with rapid ventricular response. ADDITIONAL DIAGNOSES: Atypical chest pain, relative hypotension, acute renal insufficiency, improving during the stay, likely due to dehydration due to diuretics, diabetes, hyperlipidemia, gastroesophageal reflux disease, history of gastrointestinal bleeding with anticoagulation for atrial fibrillation. CHIEF COMPLAINT AND HISTORY OF PRESENT ILLNESS: This 76-year-old white female was admitted by Dr. Jones on the day of admission with chest pain and atrial fib with rapid ventricular response. SUMMARY OF STAY: The patient was admitted. Meds were adjusted during her stay. Cardizem had to be held because of her lower blood pressure. She was given at least 1 dose of digoxin and started on amiodarone. Through a combination of amiodarone and metoprolol, which was ordered at 25 mg every 6 hours, but was not given that often due to relative hypotension, her rate came under control. BUN and creatinine decreased dramatically during her stay, her BUN on 01/04/2017 going down to 48 and 1.3 from 80 and 2.0 on admission. Troponins were negative during the stay. Cardiology recommended metoprolol 25 b.i.d. as well as the amiodarone 200 b.i.d. for 10 days, then 1 a day and the patient stated she felt better than she had felt in some time and was dismissed home. DISPOSITION: The patient was discharged home. DIET: ADA diet. ACTIVITY: As tolerated. FOLLOWUP: In office with Dr. Jones in 1 week. DISCHARGE MEDICATIONS: Listed on the med rec and have been addressed with the predominant changes being the addition of the amiodarone as mentioned above, the metoprolol at 25 b.i.d. and holding off the Cardizem. SUSAN JEFFREY MD DR: SUSANA/tatyana JOB#: [id number] / [id number]
== END 2017-01-05 18:27 | disposition home or self-care (01) | DRG 308 ==
LOC: 2 NORTH 13:04
PROVIDERS: ADMIT Internal Medicine; ATTEND Internal Medicine
DX: I48.0 Paroxysmal atrial fibrillation (principal); N17.1 Acute kidney failure with acute cortical necrosis; I13.0 Hypertensive heart and chronic kidney disease with heart failure and stage 1 through stage 4 chronic kidney disease, or unspecified chronic kidney disease; I50.30 Unspecified diastolic (congestive) heart failure; K21.9 Gastro-esophageal reflux disease without esophagitis; E78.5 Hyperlipidemia, unspecified; E66.9 Obesity, unspecified; I95.9 Hypotension, unspecified; G89.29 Other chronic pain; R63.4 Abnormal weight loss; E86.0 Dehydration; G40.909 Epilepsy, unspecified, not intractable, without status epilepticus; N18.9 Chronic kidney disease, unspecified; E11.22 Type 2 diabetes mellitus with diabetic chronic kidney disease; E11.40 Type 2 diabetes mellitus with diabetic neuropathy, unspecified; I48.2 Chronic atrial fibrillation; K57.90 Diverticulosis of intestine, part unspecified, without perforation or abscess without bleeding; M19.90 Unspecified osteoarthritis, unspecified site; Z79.82 Long term (current) use of aspirin; Z82.3 Family history of stroke; Z82.49 Family history of ischemic heart disease and other diseases of the circulatory system; Z83.3 Family history of diabetes mellitus; Z85.048 Personal history of other malignant neoplasm of rectum, rectosigmoid junction, and anus; Z86.718 Personal history of other venous thrombosis and embolism; Z87.891 Personal history of nicotine dependence; Z90.710 Acquired absence of both cervix and uterus; Z92.21 Personal history of antineoplastic chemotherapy; Z92.3 Personal history of irradiation; Z68.31 Body mass index [BMI] 31.0-31.9, adult; Z90.49 Acquired absence of other specified parts of digestive tract; Z79.899 Other long term (current) drug therapy; Z87.81 Personal history of (healed) traumatic fracture
CPT/HCPCS: 36415; 71010; 78452; 80048; 80053; 82962; 83036; 83880; 84443; 84484; 85027; 93017; 96374; 96375; 96376; A9500; J0282; J1160; J1650; J2785; J7030

== ENCOUNTER 2017-08-31 15:21 | Emergency (ER) | payer MEDICARE, BC ==
[2017-08-31 17:13] LABS: INFLUENZA A PATIENT NEGATIVE (NEGATIVE); INFLUENZA B PATIENT NEGATIVE (NEGATIVE); OBC FLU VALID
== END 2017-08-31 17:25 | disposition home or self-care (01) ==
LOC: ER 17:25
DX: J06.9 Acute upper respiratory infection, unspecified (principal); E11.9 Type 2 diabetes mellitus without complications; E03.9 Hypothyroidism, unspecified; E78.00 Pure hypercholesterolemia, unspecified; I48.91 Unspecified atrial fibrillation; I10 Essential (primary) hypertension; Z79.01 Long term (current) use of anticoagulants; Z87.891 Personal history of nicotine dependence
CPT/HCPCS: 71046; 87804; 87804-59; 99285-25

== ENCOUNTER → 2018-01-08 | Outpatient (CLI) | payer MEDICARE, BC | END | disposition home or self-care (01) | LOC: MRI 09:55 | DX: S83.241D Other tear of medial meniscus, current injury, right knee, subsequent encounter (principal); S83.281D Other tear of lateral meniscus, current injury, right knee, subsequent encounter; M22.41 Chondromalacia patellae, right knee; M25.461 Effusion, right knee; M71.21 Synovial cyst of popliteal space [Baker], right knee; R60.0 Localized edema; X58.XXXD Exposure to other specified factors, subsequent encounter | CPT/HCPCS: 73721 ==

== ENCOUNTER → 2018-01-23 | Outpatient (CLI) | payer MEDICARE, BC | END | disposition home or self-care (01) | LOC: MRI 11:57 | DX: M17.11 Unilateral primary osteoarthritis, right knee (principal); M48.061 Spinal stenosis, lumbar region without neurogenic claudication; M51.37 Other intervertebral disc degeneration, lumbosacral region; M51.35 Other intervertebral disc degeneration, thoracolumbar region; M43.16 Spondylolisthesis, lumbar region; M47.894 Other spondylosis, thoracic region; M25.78 Osteophyte, vertebrae; I13.0 Hypertensive heart and chronic kidney disease with heart failure and stage 1 through stage 4 chronic kidney disease, or unspecified chronic kidney disease; E11.22 Type 2 diabetes mellitus with diabetic chronic kidney disease; I50.9 Heart failure, unspecified; N18.9 Chronic kidney disease, unspecified; E78.5 Hyperlipidemia, unspecified; E78.00 Pure hypercholesterolemia, unspecified; E03.9 Hypothyroidism, unspecified | CPT/HCPCS: 72148 ==

== ENCOUNTER → 2018-02-10 | Outpatient (CLI) | payer MEDICARE, BC | END | disposition home or self-care (01) | LOC: PNCL 11:29 | DX: M51.36 Other intervertebral disc degeneration, lumbar region (principal); M48.061 Spinal stenosis, lumbar region without neurogenic claudication; I13.0 Hypertensive heart and chronic kidney disease with heart failure and stage 1 through stage 4 chronic kidney disease, or unspecified chronic kidney disease; E11.22 Type 2 diabetes mellitus with diabetic chronic kidney disease; I50.9 Heart failure, unspecified; N18.9 Chronic kidney disease, unspecified; E78.5 Hyperlipidemia, unspecified; E78.00 Pure hypercholesterolemia, unspecified; E03.9 Hypothyroidism, unspecified | CPT/HCPCS: G0463 ==

== ENCOUNTER → 2018-02-17 | Outpatient (CLI) | payer MEDICARE, BC ==
[~2018-02-17] MED LIST changes: -APIX5TAB PO; -ASPI81TA2 PO; -ATOR40TA59 PO; -CLON0.1T PO; -CYCL10TA2 PO; -DILT240C2 PO; -DILT300C43 PO; -DULO60CA6 PO; -FURO20TA3 PO; -FURO40TA4 PO; -GABA-586 PO; -HYDR-2666 PO; -HYDR-2672 PO; +IOHEXOL 180 MG/ML 10 ML VIAL.; +LIDOCAINE 1% PF 2 ML VIAL.; -LISI2.5T PO; -LISI40TA PO; -METF500T4 PO; -METO100T11 PO; -METO50TA10 PO; -OMEP20TA PO; -OMEP40CA5 PO; -ONDA4TAB7 PO; -PHEN32.42 PO; +methylPREDNISolone ACETATE 40 MG/ML VIAL.; +methylPREDNISolone ACETATE 80 MG/ML VIAL.
== END ==
LOC: PNCL 10:17
DX: M51.16 Intervertebral disc disorders with radiculopathy, lumbar region (principal); M48.061 Spinal stenosis, lumbar region without neurogenic claudication; M43.16 Spondylolisthesis, lumbar region; I13.0 Hypertensive heart and chronic kidney disease with heart failure and stage 1 through stage 4 chronic kidney disease, or unspecified chronic kidney disease; E11.22 Type 2 diabetes mellitus with diabetic chronic kidney disease; N18.9 Chronic kidney disease, unspecified; I50.9 Heart failure, unspecified; E78.5 Hyperlipidemia, unspecified; E03.9 Hypothyroidism, unspecified; M17.11 Unilateral primary osteoarthritis, right knee; I48.91 Unspecified atrial fibrillation; K21.9 Gastro-esophageal reflux disease without esophagitis; E66.9 Obesity, unspecified; M19.90 Unspecified osteoarthritis, unspecified site; Z87.891 Personal history of nicotine dependence; Z85.038 Personal history of other malignant neoplasm of large intestine; Z79.01 Long term (current) use of anticoagulants; Z79.899 Other long term (current) drug therapy
CPT/HCPCS: 62323; J1030; J1040; Q9965

== ENCOUNTER → 2018-04-16 | Outpatient (CLI) | payer MEDICARE ==
[2017-08-31 15:50] VITALS: BP 147/71
[~2018-04-16] MED LIST changes: +AMIO200T4 PO; +APIX2.5T PO; +APIX5TAB PO; +ASPI-482 PO; +ASPI-630 PO; +ATOR40TA59 PO; +CLON0.1T PO; +CYCL10TA2 PO; +DIGO125T PO; +DIGO125T79 PO; +DILT180C29 PO; +DILT240C2 PO; +DILT300C43 PO; +DULO60CA6 PO; +ENOX40DI SQ; +FURO20TA3 PO; +FURO40TA4 PO; +GABA-586 PO; +HYDR-2758 PO; +HYDR-2766 PO; -IOHEXOL 180 MG/ML 10 ML VIAL.; +LEVO25TA4 PO; -LIDOCAINE 1% PF 2 ML VIAL.; +LISI-130 PO; +LISI2.5T PO; +METF500T16 PO; +METO-247 PO; +METO25TA4 PO; +METO50TA29 PO; +OMEP20TA8 PO; +OMEP40CA5 PO; +ONDA4TAB7 PO; +PHEN32.42 PO; +POTA20TA82 PO; +SUCR1TAB PO; -methylPREDNISolone ACETATE 40 MG/ML VIAL.; -methylPREDNISolone ACETATE 80 MG/ML VIAL.
--- NOTE | 2018-04-16 16:13 | KCIC ---
Bilateral digital screening mammograms: Reason for examination: Routine screening. Comparison is made to previous study dated 04/06/2015. Interpretation was made with the benefit of CAD. The skin and nipples show no abnormalities. No abnormal axillary lymph nodes are seen. The breast parenchyma shows scattered fibroglandular density. (Breast density: Category B.) There are no dominant masses, suspicious calcifications or architectural distortions. There are some vascular calcifications again seen. Impression: No evidence of malignancy. Recommend routine screening. BI-RADS Category 1: Negative. "Our facility is accredited by the [employer] Mammography Program." This patient's information has been entered into a reminder system for the patient to be notified with the results of her examination and a target date for the next mammogram. Electronically signed by: Patsy Mena MD (04/16/2018 4:10 PM) [id number]
--- NOTE | 2018-04-21 10:34 | KCIC ---
Bone mineral density exam History: Postmenopausal, diabetes, chemotherapy, hysterectomy, anticonvulsant use, Fosamax, takes thyroid medication Comparison: None Findings: Bone mineral density examination utilizing DEXA was performed. Left hip bone mineral density of 0.964 g/cm2 corresponds with a T score 0.2, Z score 2.1. The bone mineral density of the lumbar spine was 1.484 g/cm2 which corresponds with a T-score of 4.0, Z score 6.5. By World [employer] on Osteoporosis criteria, a T score of 0 to-1 SD is considered to be within normal limits. A T score of -1 to -2.5 SD is considered osteopenia. A T score less than -2.5 SD is considered osteoporosis Impression: 1. Bone mineral density of the lumbar spine is within normal limits although may be artificially elevated due to the presence of degenerative change. Left hip bone mineral density is also within normal limits. Electronically signed by: Jaswant Johnson MD (04/21/2018 10:31 AM) [email or web address]
== END | disposition home or self-care (01) ==
LOC: KCIC DEXA 09:16
PROVIDERS: ATTEND Physician Assistant Surgical
DX: Z12.31 Encounter for screening mammogram for malignant neoplasm of breast (principal); Z13.820 Encounter for screening for osteoporosis; E11.9 Type 2 diabetes mellitus without complications; I13.0 Hypertensive heart and chronic kidney disease with heart failure and stage 1 through stage 4 chronic kidney disease, or unspecified chronic kidney disease; E11.22 Type 2 diabetes mellitus with diabetic chronic kidney disease; I50.9 Heart failure, unspecified; N18.9 Chronic kidney disease, unspecified; K21.9 Gastro-esophageal reflux disease without esophagitis; I48.2 Chronic atrial fibrillation; Z85.048 Personal history of other malignant neoplasm of rectum, rectosigmoid junction, and anus; Z87.440 Personal history of urinary (tract) infections; Z86.718 Personal history of other venous thrombosis and embolism; Z87.891 Personal history of nicotine dependence; Z85.038 Personal history of other malignant neoplasm of large intestine; Z92.3 Personal history of irradiation; Z90.710 Acquired absence of both cervix and uterus; Z78.0 Asymptomatic menopausal state; Z92.21 Personal history of antineoplastic chemotherapy; Z87.81 Personal history of (healed) traumatic fracture; Z90.49 Acquired absence of other specified parts of digestive tract; Z82.49 Family history of ischemic heart disease and other diseases of the circulatory system; Z82.3 Family history of stroke; Z80.0 Family history of malignant neoplasm of digestive organs; Z83.3 Family history of diabetes mellitus
CPT/HCPCS: 77067; 77080

== ENCOUNTER → 2018-06-15 | Outpatient (CLI) | payer MEDICARE ==
[2017-08-31 15:50] VITALS: BP 147/71
[~2018-06-15] MED LIST changes: +IOHEXOL 180 MG/ML 10 ML VIAL. ONE; +LIDOCAINE 1% PF 2 ML VIAL. ONE; +methylPREDNISolone ACETATE 40 MG/ML VIAL. ONE; +methylPREDNISolone ACETATE 80 MG/ML VIAL. ONE
--- NOTE | 2018-06-16 04:00 | PAIN ---
DATE OF SERVICE: 06/15/2018 DIAGNOSES: Lumbar radiculopathy with lumbar spinal stenosis and lumbar degenerative disk disease. HISTORY OF PRESENT ILLNESS: The patient is a 77-year-old female who returns for followup status post lumbar epidural steroid injection x 1 on 02/17. The patient did very well with about a 75% improvement initially, now with about 50% improvement. The pain is returning now in the low back and bilateral lower extremities. The patient reports no new motor or sensory deficits, no new bowel or bladder incontinence, but worse with walking, standing, changing positions. It has been awakening her from sleep occasionally, but not normally. The patient reports it is a 10 on a scale of 10 at its worst, on average, at its least and is a 10 today in the low back and into the bilateral lower extremities as it was previously mostly posterior lateral, anterior aspect of thighs, lateral anterior medial thighs to the medial knee. The patient reports it is becoming more constant. It is a shooting, sharp, dull, aching pain, tight and sometimes stabbing in the low back. The patient reports no new motor or sensory deficits, no new bowel or bladder incontinence or other complaints. PHYSICAL EXAMINATION: VITAL SIGNS: The patient's blood pressure 138/79, pulse 73, respirations 18, temperature 98.0 degrees Fahrenheit, height is 5 feet 3 inches and weighs 200 pounds. GENERAL: The patient is awake, alert, oriented, appropriate and very pleasant demeanor. HEENT: Head shows normocephalic and atraumatic. Extraocular movements are intact and symmetrical. Oral cavity: Mucous membranes are moist and pink. Dentition is intact. NECK: Shows anterior throat is supple without palpable lymphadenopathy noted. Swallow reflex is symmetrical. CHEST: Shows normal with inspection. Breath sounds are clear to auscultation bilaterally. HEART: Shows S1 and S2 clear. No murmurs are auscultated. ABDOMEN: Soft, nontender and nondistended. No palpable organomegaly is noted. No rebound or guarding demonstrated. BACK: Shows spine grossly in the midline. Normal appearing thoracic kyphosis and some minor flattening of the lumbar lordotic curvature. Lumbar paraspinous muscle shows symmetrical on inspection. On palpation shows some moderate tenderness diffusely, but only in the low lumbar distribution without radiation. No tenderness over the sacrum or sacroiliac regions. EXTREMITIES: Lower extremities show deep tendon reflexes at 1+ in the patellar and tendo calcaneus tendon and are equal. Motor exam is approximately 4 on a scale of 5 with symmetrical dorsiflexion, extension, quadriceps and hamstring flexion. Peripheral pulses are 1+ posterior tibial. No peripheral edema is noted bilaterally. Options were discussed with the patient. The patient's old chart was reviewed as was her current medication regimen updated. Current review of systems updated today as well. We will proceed with a second in a series of lumbar epidural steroid injection today with fluoroscopic guidance. Risks were again discussed including, but not limited to bleeding, infection, possibility of epidural hematoma, subsequent neurologic compromise, dural puncture, headaches, spinal cord and/or nerve damage, side effects of steroid medication and poor results regarding pain control. The patient understands and wished to proceed. The patient will return to the clinic in approximately 2 weeks for followup, was counseled as to return appointment and activity level and side effects to be aware of. DIAGNOSIS: Lumbar radiculopathy with lumbar spinal stenosis and lumbar degenerative disk disease. PROCEDURES: Lumbar epidural steroid injection, translaminar approach at the L4-L5 level using C-arm fluoroscopic guidance under sterile prep and drape using local anesthetic. MEDICATION INJECTED: A total of 120 mg Depo-Medrol plus 10 mL of preservative-free normal saline and 2 mL of Isovue for contrast. CONDITION AT DISCHARGE: Stable. The patient tolerated the procedure well and had no complications. JAY HUANG MD DR: LISA/tatyana JOB#: [id number] / [id number]
== END | disposition home or self-care (01) ==
LOC: PNCL 13:42
PROVIDERS: ATTEND Anesthesiology
DX: M51.16 Intervertebral disc disorders with radiculopathy, lumbar region (principal); M48.061 Spinal stenosis, lumbar region without neurogenic claudication
CPT/HCPCS: 62323; J1030; J1040; Q9965